=== PATIENT | female | born 1960 | race Caucasian/White ===

== ENCOUNTER → 2018-05-29 11:07 | Outpatient (CLI) | payer OTHER, SELFPAY ==
--- NOTE | 2018-05-29 | DI.MG.S_ITS ---
BILATERAL DIGITAL SCREENING MAMMOGRAM 3D/2D WITH CAD: 05/29/2018 CLINICAL: Routine screening. Family history of breast cancer. Comparison is made to exams dated: 08/29/2015 mammogram, 09/01/2014 mammogram, and 08/22/2014 mammogram - [facility]. There are scattered fibroglandular elements in both breasts. Current study was also evaluated with a Computer Aided Detection (CAD) system. No significant masses, calcifications, or other findings are seen in either breast. There has been no significant interval change. IMPRESSION: NEGATIVE There is no mammographic evidence of malignancy. A 1 year screening mammogram is recommended. This exam was interpreted at Station ID: [id number]. NOTE: For mammograms, a report in lay terms will be sent to the patient. Approximately 15% of breast malignancies will not be visualized mammographically. In the management of a palpable breast mass, a negative mammogram must not discourage biopsy of a clinically suspicious lesion. Electronically Signed By: Riya paredes/kathryn:05/29/2018 15:37:30 letter sent: Normal Exam ACR BI-RADS Category 1: Negative 3341F
== END ==
PROVIDERS: Family Provider Family Medicine; PCP Family Medicine; Visit Provider Family Medicine
DX: Z12.31 Encounter for screening mammogram for malignant neoplasm of breast (principal); Z80.3 Family history of malignant neoplasm of breast
CPT/HCPCS: 77063; 77067

== ENCOUNTER → 2018-12-07 09:42 | Outpatient (CLI) | payer OTHER, SELFPAY ==
[2018-12-07 10:54] LABS: Add Manual Diff / Slide Review NO; Basophils Absolute Auto 0 /uL (0-100); Basophils Percent Auto 0.7 % (0-2); Eosinophils Absolute Auto 200 /uL (0-450); Eosinophils Percent Auto 3.4 % (2-4); Hemoglobin 15.7 g/dL (12.0-16.0); Lymphocytes Absolute Auto 2000 /uL (1100-4500); Lymphocytes Percent Auto 43.1 % (25-40); Mean Corpuscular HGB Conc 34.1 % (30-36); Mean Corpuscular Hemoglobin 32.4 PG (26-34); Mean Corpuscular Volume 94.8 fL (80-100); Monocytes Absolute Auto 300 /uL (0-900); Monocytes Percent Auto 6.6 % (3-14); Neutrophils Absolute Auto 2100 /uL (1500-7000); Neutrophils Percent Auto 46.2 % (50-75); Platelet Count 194 X10^3/uL (150-400); Red Blood Cell Count 4.85 X10^6/uL (4.0-5.2); Red Cell Distribution Width 14.3 % (11.6-14.8); White Blood Cell Count 4.6 X10^3/uL (4.5-11.0)
[2018-12-07 11:12] LABS: Alanine Aminotransferase 48 IU/L (9-52); Albumin 4.7 g/dL (3.5-5.0); Albumin Globulin Ratio 1.4 (1.0-2.8); Alkaline Phosphatase 59 U/L (38-126); Aspartate Aminotransferase 38 IU/L (14-36); BUN Creatinine Ratio 15.6 (6-22); Blood Urea Nitrogen 14 mg/dL (7-17); Calcium 10.1 mg/dL (8.4-10.2); Carbon Dioxide 26 mmol/L (22-32); Chloride 104 mmol/L (98-107); Cholesterol 285 mg/dL (140-199); Estimated Glomerular Filt Rate > 60.0 mL/min (>60); Globulin 3.3 g/dL (1.7-4.1); Glucose 94 mg/dL (70-100); HDL Cholesterol 71 mg/dL (40-60); HEMOLYSIS 25 (0-50); LDL Cholesterol Calculated 186 mg/dL (<100); Potassium 5.2 mmol/L (3.4-5.1); Sodium 142 mmol/L (137-145); Triglycerides 141 mg/dL (35-150)
[2018-12-07 11:38] LABS: Thyroid Stimulating Hormone 3.16 uIU/mL (0.47-4.68)
== END ==
PROVIDERS: PCP Family Medicine; Visit Provider Family Medicine
DX: D69.6 Thrombocytopenia, unspecified (principal); E78.2 Mixed hyperlipidemia; N95.9 Unspecified menopausal and perimenopausal disorder; R94.5 Abnormal results of liver function studies
CPT/HCPCS: 36415; 80053; 80061; 83001; 84443; 85025

== ENCOUNTER → 2018-12-15 09:12 | Outpatient (CLI) | payer OTHER, SELFPAY ==
--- NOTE | 2018-12-15 09:14 | DI.MRI.S_ITS ---
PROCEDURE: MR HEAD/BRAIN WO CON INDICATIONS: Change in headache story TECHNIQUE: Noncontrast axial T1 spin echo, axial T2 fast spin echo, sagittal and axial FLAIR, coronal T2 fast spin echo, axial gradient echo, axial diffusion and ADC through the brain. COMPARISON: None. FINDINGS: Image quality: Diagnostic CSF Spaces: Basal cisterns are patent. No extra-axial fluid collections. Ventricles are normal in size and shape. Brain: No intracranial masses or hemorrhage. Miranda/white matter interface is normal. Brainstem appears normal. Diffusion-weighted images demonstrate no acute ischemic insult. No chronic ischemic insults. Normal intravascular flow voids are present. Skull and face: Calvarium has normal marrow signal. Orbits appear normal. Sinuses: Sinuses and mastoids are clear. IMPRESSION: Unremarkable intracranial study, without an imaging explanation found for the patient's presenting history of change in headache. Dictated by: Ariel Zuluaga M.D. on 12/15/2018 at 9:16 Approved by: Ariel Zuluaga M.D. on 12/15/2018 at 9:17
== END ==
PROVIDERS: PCP Family Medicine; Visit Provider Family Medicine
DX: G43.109 Migraine with aura, not intractable, without status migrainosus (principal)
CPT/HCPCS: 70551

== ENCOUNTER → 2019-07-12 09:24 | Outpatient (CLI) | payer OTHER, SELFPAY ==
[2019-07-12 11:09] LABS: Cholesterol 201 mg/dL (140-199); HDL Cholesterol 54 mg/dL (40-60); LDL Cholesterol Calculated 119 mg/dL (<100); Triglycerides 139 mg/dL (35-150)
== END ==
PROVIDERS: PCP Family Medicine; Visit Provider Family Medicine
DX: E78.2 Mixed hyperlipidemia (principal)
CPT/HCPCS: 36415; 80061

== ENCOUNTER → 2020-11-08 16:54 | Outpatient (CLI) | payer OTHER, SELFPAY ==
--- NOTE | 2020-11-08 | DI.MG.S_ITS ---
BILATERAL DIGITAL SCREENING MAMMOGRAM 3D/2D WITH CAD: 11/08/2020 CLINICAL: Routine screening. Family history of breast cancer. Comparison is made to exams dated: 05/29/2018 mammogram, 08/29/2015 mammogram, and 09/01/2014 mammogram - [facility]. There are scattered fibroglandular elements in both breasts. Current study was also evaluated with a Computer Aided Detection (CAD) system. There is a stable benign focal asymmetry in the right breast. No significant masses, calcifications, or other findings are seen in either breast. There has been no significant interval change. IMPRESSION: BENIGN There is no mammographic evidence of malignancy. A 1 year screening mammogram is recommended. This exam was interpreted at Station ID: [id number]. NOTE: For mammograms, a report in lay terms will be sent to the patient. Approximately 15% of breast malignancies will not be visualized mammographically. In the management of a palpable breast mass, a negative mammogram must not discourage biopsy of a clinically suspicious lesion. Electronically Signed By: Kelvin Cho acr/kathryn:11/09/2020 08:37:34 letter sent: Normal Exam ACR BI-RADS Category 2: Benign Finding(s) 3342F
== END ==
PROVIDERS: PCP Registered Nurse Diabetes Educator; Referring Provider Family Medicine; Visit Provider Family Medicine
DX: Z12.31 Encounter for screening mammogram for malignant neoplasm of breast (principal); Z80.3 Family history of malignant neoplasm of breast
CPT/HCPCS: 77063; 77067

== ENCOUNTER → 2020-11-27 09:17 | Outpatient (CLI) | payer OTHER, SELFPAY ==
[2020-11-27 10:20] LABS: Hematocrit 41.3 % (36-46); Hemoglobin 13.7 g/dL (12.0-16.0); Mean Corpuscular HGB Conc 33.2 % (30-36); Mean Corpuscular Volume 93.1 fL (80-100); Platelet Count 161 X10^3/uL (150-400); Red Blood Cell Count 4.43 X10^6/uL (4.0-5.2); Red Cell Distribution Width 13.2 % (11.6-14.8); White Blood Cell Count 3.7 X10^3/uL (4.5-11.0)
[2020-11-27 11:24] LABS: Alanine Aminotransferase 32 IU/L (<35); Albumin 4.1 g/dL (3.5-5.0); Albumin Globulin Ratio 1.6 (1.0-2.8); Alkaline Phosphatase 51 U/L (38-126); Aspartate Aminotransferase 31 IU/L (14-36); BUN Creatinine Ratio 22.1 (6-22); Bilirubin Total 1.1 mg/dL (0.2-1.3); Blood Urea Nitrogen 17 mg/dL (7-17); Calcium 9.2 mg/dL (8.4-10.2); Carbon Dioxide 29 mmol/L (22-32); Chloride 104 mmol/L (98-107); Cholesterol 188 mg/dL (140-199); Estimated Glomerular Filt Rate > 60.0 mL/min (>60); Globulin 2.5 g/dL (1.7-4.1); Glucose 101 mg/dL (70-100); HDL Cholesterol 55 mg/dL (40-60); HEMOLYSIS < 15 (0-50); LDL Cholesterol Calculated 109 mg/dL (<100); Potassium 4.3 mmol/L (3.4-5.1); Sodium 138 mmol/L (137-145); Total Protein 6.6 g/dL (6.3-8.2); Triglycerides 122 mg/dL (35-150)
[2020-11-27 11:55] LABS: TSH w/ Reflex to FT4 0.56 uIU/mL (0.47-4.68)
== END ==
PROVIDERS: PCP Registered Nurse Diabetes Educator; Referring Provider Registered Nurse Diabetes Educator; Visit Provider Registered Nurse Diabetes Educator
DX: Z00.00 Encounter for general adult medical examination without abnormal findings (principal); E78.2 Mixed hyperlipidemia; R94.5 Abnormal results of liver function studies
CPT/HCPCS: 36415; 80053; 80061; 84443; 85027

== ENCOUNTER → 2022-01-28 09:10 | Outpatient (CLI) | payer OTHER, SELFPAY ==
[2022-01-28 10:31] LABS: Add Manual Diff / Slide Review NO; Basophils Absolute Auto 0 /uL (0-100); Basophils Percent Auto 0.6 % (0-2); Eosinophils Absolute Auto 100 /uL (0-450); Eosinophils Percent Auto 2.9 % (2-4); Hematocrit 43.1 % (36-46); Hemoglobin 14.6 g/dL (12.0-16.0); Lymphocytes Absolute Auto 1200 /uL (1100-4500); Mean Corpuscular HGB Conc 33.8 % (30-36); Mean Corpuscular Volume 91.8 fL (80-100); Monocytes Absolute Auto 300 /uL (0-900); Monocytes Percent Auto 7.8 % (3-14); Neutrophils Absolute Auto 1900 /uL (1500-7000); Neutrophils Percent Auto 53.7 % (50-75); Platelet Count 153 X10^3/uL (150-400); Red Cell Distribution Width 13.7 % (11.6-14.8); White Blood Cell Count 3.5 X10^3/uL (4.5-11.0)
[2022-01-28 11:22] LABS: Alanine Aminotransferase 45 IU/L (<35); Albumin 4.6 g/dL (3.5-5.0); Albumin Globulin Ratio 1.5 (1.0-2.8); Alkaline Phosphatase 51 U/L (38-126); Aspartate Aminotransferase 38 IU/L (14-36); BUN Creatinine Ratio 15.5 (6-22); Bilirubin Total 1.4 mg/dL (0.2-1.3); Blood Urea Nitrogen 13 mg/dL (7-17); Calcium 9.2 mg/dL (8.4-10.2); Carbon Dioxide 28 mmol/L (22-32); Chloride 104 mmol/L (98-107); Cholesterol 201 mg/dL (140-199); Estimated Glomerular Filt Rate > 60.0 mL/min (>60); Globulin 3.1 g/dL (1.7-4.1); Glucose 98 mg/dL (80-110); HDL Cholesterol 51 mg/dL (40-60); HEMOLYSIS < 15 (0-50); LDL Cholesterol Calculated 124 mg/dL (<100); Potassium 4.3 mmol/L (3.4-5.1); Sodium 140 mmol/L (137-145); Total Protein 7.7 g/dL (6.3-8.2); Triglycerides 132 mg/dL (35-150)
[2022-01-28 11:50] LABS: TSH w/ Reflex to FT4 2.28 uIU/mL (0.47-4.68)
[2022-01-28 12:36] LABS: Folate 12.5 ng/mL (2.76-20.0); Vitamin B12 216 pg/mL (239-931)
== END ==
PROVIDERS: PCP Registered Nurse Diabetes Educator; Referring Provider Psychiatry & Neurology Neurology; Visit Provider Psychiatry & Neurology Neurology
DX: R41.3 Other amnesia (principal); E78.2 Mixed hyperlipidemia; R94.5 Abnormal results of liver function studies; R73.01 Impaired fasting glucose
CPT/HCPCS: 36415; 80053; 80061; 82607; 82746; 84443; 85025

== ENCOUNTER → 2022-04-17 10:50 | Outpatient (CLI) | payer OTHER, SELFPAY ==
--- NOTE | 2022-04-17 10:51 | DI.MG.S_ITS ---
BILATERAL DIGITAL SCREENING MAMMOGRAM 3D/2D WITH CAD: 04/17/2022 CLINICAL: Routine screening. Family history of breast cancer. Comparison is made to exams dated: 11/08/2020 mammogram, 05/29/2018 mammogram, and 08/29/2015 mammogram - [facility]. There are scattered fibroglandular elements in both breasts. Current study was also evaluated with a Computer Aided Detection (CAD) system. There is a stable benign focal asymmetry in the right breast. No significant masses, calcifications, or other findings are seen in either breast. There has been no significant interval change. IMPRESSION: BENIGN There is no mammographic evidence of malignancy. A 1 year screening mammogram is recommended. This exam was interpreted at Station ID: [id number]. NOTE: For mammograms, a report in lay terms will be sent to the patient. Approximately 15% of breast malignancies will not be visualized mammographically. In the management of a palpable breast mass, a negative mammogram must not discourage biopsy of a clinically suspicious lesion. Electronically Signed By: Kelvin Cho acr/kathryn:04/17/2022 12:06:41 letter sent: Normal Exam ACR BI-RADS Category 2: Benign Finding(s) 3342F
--- NOTE | 2022-04-17 10:51 | DI.US.S_ITS ---
PROCEDURE: US ABDOMEN LIMITED INDICATIONS: ELEVATED LIVER ENZYMES TECHNIQUE: Real-time focused scanning was performed of the abdomen, with image documentation. COMPARISON: None. FINDINGS: Normally distended gallbladder. No gallbladder wall thickening. No pericholecystic fluid. No shadowing gallstone or sludge. Diffusely increased hepatic parenchymal echogenicity. No focal hepatic mass. No intrahepatic or extrahepatic biliary ductal dilatation. Visualized portions of pancreas are normal. IMPRESSION: Hepatic steatosis. Otherwise normal study. Dictated by: Lewis Escalona M.D. on 04/17/2022 at 12:13 Approved by: Lewis Escalona M.D. on 04/17/2022 at 12:19
== END ==
PROVIDERS: PCP Registered Nurse Diabetes Educator; Referring Provider Registered Nurse Diabetes Educator; Visit Provider Registered Nurse Diabetes Educator
DX: Z12.31 Encounter for screening mammogram for malignant neoplasm of breast (principal); Z80.3 Family history of malignant neoplasm of breast; K76.0 Fatty (change of) liver, not elsewhere classified; R94.5 Abnormal results of liver function studies
CPT/HCPCS: 76705; 77063; 77067

== ENCOUNTER → 2022-07-15 08:44 | Outpatient (CLI) | payer OTHER, SELFPAY ==
[2022-07-15 09:45] LABS: Alanine Aminotransferase 58 IU/L (<35); Albumin 4.2 g/dL (3.5-5.0); Albumin Globulin Ratio 1.3 (1.0-2.8); Alkaline Phosphatase 58 U/L (38-126); Aspartate Aminotransferase 48 IU/L (14-36); Bilirubin Total 1.8 mg/dL (0.2-1.3); Bilirubin Unconjugated 1.7 mg/dL (0.0-1.1); Cholesterol 183 mg/dL (140-199); Globulin 3.2 g/dL (1.7-4.1); HDL Cholesterol 56 mg/dL (40-60); HEMOLYSIS < 15 (0-50); LDL Cholesterol Calculated 107 mg/dL (<100); Total Protein 7.4 g/dL (6.3-8.2); Triglycerides 101 mg/dL (35-150)
[2022-07-15 10:19] LABS: Ferritin 61 ng/mL (11-264)
[2022-07-15 11:10] LABS: HEMOLYSIS < 15 (0-50); Iron 105 ug/dL (37-170)
[2022-07-15 11:21] LABS: Percent Iron Saturation 32 % (15-50); Total Iron Binding Capacity 330 ug/dL (265-497); Transferrin 252 mg/dL (206-381)
== END ==
PROVIDERS: PCP Registered Nurse Diabetes Educator; Referring Provider Registered Nurse Diabetes Educator; Visit Provider Registered Nurse Diabetes Educator
DX: E78.2 Mixed hyperlipidemia (principal); R94.5 Abnormal results of liver function studies
CPT/HCPCS: 36415; 80061; 80076; 82728; 83540; 83550

== ENCOUNTER → 2022-07-23 12:34 | Outpatient (CLI) | payer OTHER, SELFPAY ==
[2022-07-24 08:48] LABS: Fecal Immunochemical Test Positive (Negative)
== END ==
PROVIDERS: PCP Registered Nurse Diabetes Educator; Referring Provider Registered Nurse Diabetes Educator; Visit Provider Registered Nurse Diabetes Educator
DX: Z12.11 Encounter for screening for malignant neoplasm of colon (principal)
CPT/HCPCS: 82274

== ENCOUNTER → 2022-07-30 09:07 | Outpatient (CLI) | payer OTHER, SELFPAY ==
[2022-07-30 10:48] LABS: COVID19 -Nasal RAPID Negative (Negative)
== END ==
PROVIDERS: PCP Registered Nurse Diabetes Educator; Visit Provider Surgery
DX: Z01.812 Encounter for preprocedural laboratory examination (principal); Z20.822 Contact with and (suspected) exposure to COVID-19
CPT/HCPCS: 87635; C9803

== ENCOUNTER 2022-07-31 09:21 | Day surgery (SDC) | payer OTHER, SELFPAY ==
[2022-07-31] VITALS (7 sets, daily range): BP systolic 129–156; BP diastolic 79–95; PULSE 65–75; RESP 12–18; TEMP 36.1–36.9; O2SAT 93–98; BMI 26.6
--- NOTE | 2022-07-31 | PATH_ITS ---
[facility] Accession Number: [id number] . 01 Material submitted: . rectum - RECTAL POLYP . 01 Diagnosis: Rectal Polyp, Biopsy: Tubulovillous adenoma. No high-grade dysplasia or malignancy. [facility] 08/02/2022 1157 Local . 01 Electronically signed: . Georgette Fuentes MD, Pathologist NPI- [id number] . 01 Gross description: . RECTAL POLYP: Received in formalin is 1 fragment of baeza soft tissue measuring 0.8 x 0.7 x 0.6 cm. Specimen is sectioned and submitted in its entirety in 1 cassette. /LILLIAM 08/01/2022 2235 Local . 01 Pathologist provided ICD-10: D12.8 . 01 CPT . 874844 Specimen Comment: A courtesy copy of this report has been sent to [phone] Performed at: 01 [facility] [address] [place] [address], [place], [place] [id number] MD Sarmad Stephens MD Phone: [phone]
--- NOTE | 2022-07-31 10:21 | P.HP_ITS ---
History of Present Illness History of Present Illness Date Patient Seen: 07/31/22 Time Patient Seen: 10:21 Chief complaint: DX COLONOSCOPY Narrative: colon cancer screen. Grandmother at age 80 had colon cancer. No symptoms. Patient History Medical History Impaired fasting blood sugar Family & Social History Social History: household members spouse Tobacco & Substance use: Smoking Status Former smoker alcohol intake frequency 0-2 drinks per day Substance Use Type does not use Meds Home Medications and Allergies Home Medications Medication Instructions Recorded Confirmed Type [LATANOPROST .005 % S] ##75 02/05/18 03/19/22 History verapamil 240 mg 24 hr 240 mg PO QDAY #90 caps 12/13/19 07/31/22 Rx capsule,extended release rizatriptan 10 mg tablet 10 mg PO ONCE PRN migraine 02/21/20 07/31/22 Rx headache #30 tabs atorvastatin 20 mg tablet 20 mg PO BEDTIME #90 tabs 03/19/22 07/31/22 Rx Allergies Allergy/AdvReac Type Severity Reaction Status Date / Time venom-honey bee Allergy Severe FEVER, Verified 07/31/22 10:01 [BEE VENOM (HONEY BEE)] LESIONS, SWELLING eucalyptus Allergy Mild Unknown Verified 07/31/22 10:01 [From Cepastat (eucalyptus)] menthol Allergy Mild Unknown Verified 07/31/22 10:01 [From Cepastat (eucalyptus)] phenol Allergy Mild Unknown Verified 07/31/22 10:01 [From Cepastat (eucalyptus)] Review of Systems Review of Systems ROS: Yes All systems reviewed with the patient and are negative except as otherwise documented Exam Vital Signs (past 8 hours): - 07/31/22 09:59 Temperature 97.4 F L Pulse Rate 75 Respiratory Rate 16 Blood Pressure 156/84 H Pulse Oximetry 97 Oxygen Delivery Method Room Air Oxygen Delivery Method Room Air Const General: cooperative, healthy appearing and comfortable [facility] Head: normal to inspection, normocephalic and atraumatic Face and sinus: normal facial exam Eyes General: appearance normal, both eyes and all related structures Sclera: sclerae normal Neck Neck: trachea midline Chest Chest: normal inspection of the chest Resp Effort & Inspection: normal respiratory effort Cardio Rate: regular rate Rhythm: regular rhythm GI Palpation: soft Skin General: no rashes or lesions noted and elasticity normal Neuro General: patient alert, patient awake and patient oriented x3 Extrem General: normal to inspection Psych Appearance: grossly normal Mental Status: mental status grossly normal Judgment: judgment good Assessment & Plan Assessment & Plan narrative: colon cancer screening with colonoscopy and moderate sedation COVID-19 COVID-19 status: Negative Time Spent With Patient Time with patient: less than 30 minutes Critical Care time: I spent a total of [] minutes of critical care time on this patient's care today; this time is exclusive of procedural time.
[2022-07-31] MEDS: MIDAZOLAM 5 MG/5 ML VIAL 8 MG IV (10:54)
[2022-07-31] MEDS: fentaNYL 100 MCG/2 ML INJ 175 MCG IV (10:54)
--- NOTE | 2022-07-31 11:13 | PM.OP.COLON ---
Operative Date/Time/Diagnoses Date of procedure: 07/31/22 Time of procedure: 11:14 Pre-op diagnosis: Colon cancer screening Post-op diagnosis: same Procedure & Clinicians Study performed: Colonoscopy with cold snare polypectomy Same procedure as scheduled: Yes Indications: Colon cancer screening Surgeon: Chikis Gtz Procedure Notes Procedure in detail: Preop diagnosis: Colon cancer screening Postop diagnosis: Same Operative procedure: Colonoscopy with cold snare polypectomy Surgeon: Caryn Gtz MD Anesthetic: Fentanyl 175 mcg, Versed 8 mg Findings: Polyp on a stalk approximately 1.3 cm in size. Cold snare biopsied. No diverticulosis, no other polyps identified. Procedure: Patient placed in lateral position. Rectal exam performed showing normal tone no masses. Colonoscope inserted into the rectum and advanced to ileocecal valve with minimal difficulty. Insufflation and extraction of the scope including retroflex the rectum had the above findings Impression: 1.3 cm size polyp with stock at approximately 23 cm from the anal verge. Taken with cold forceps snare. Specimen not retrieved the time of colonoscopy. We will attempt enema with capture of fluid postprocedure Plan: PACU, enema for receiving retained specimen Sedation minutes: 23 Findings: polyp(s) (Single polyp on a stalk at 1.3 cm in size. Found at 23 cm from anal verge) Specimen(s): other (Polyp) Complications: none Impression: Single polyp. Will await pathology for confirmation of colonoscopy in 5 years Post-procedure Recommendations: Colonoscopy in 5 years Follow up: as needed Disposition: PACU
--- NOTE | 2022-07-31 11:14 | SUR.OPER ---
polyp was removed unable to find to remove, Per Dr robles in PACU pt to have emema and hat to attempt to obtain biopsy
[2022-07-31] MEDS: FLEETS ENEMA 1 EACH PR (11:33)
--- NOTE | 2022-07-31 12:09 | SUR.OPER ---
this RN called to Preop and pt had Bowel movement in hat and polyp was collected.
--- NOTE | 2022-07-31 12:15 | SUR.PHASEII ---
Pt from Phase I, up to BR. Pt complained of cramping to abd 01/24. Fleets enema given. Polyps collected. Pt passed flatus. Resting in bed at this time. States cramping is improving. Dr Gtz updated and stated cramping to be expected today.
--- NOTE | 2022-07-31 12:38 | SUR.PHASEII ---
1215 Assumed care. Patient reported pain abdominal 3/. Patient requested to get dressed.
== END 2022-07-31 12:28 | disposition home or self-care (01) ==
PROVIDERS: PCP Registered Nurse Diabetes Educator; Referring Provider Surgery; Visit Provider Surgery
PROC: 0DJD8ZZ Inspection of Lower Intestinal Tract, Via Natural or Artificial Opening Endoscopic (ICD-10-PCS; CPT 45378; principal; 2022-07-31 10:45)
DX: Z12.11 Encounter for screening for malignant neoplasm of colon (principal); D12.8 Benign neoplasm of rectum
CPT/HCPCS: 45385; 99152; J2250; J3010

== ENCOUNTER → 2022-10-01 11:39 | Outpatient (CLI) | payer OTHER, SELFPAY ==
[2022-10-01 12:58] LABS: Alanine Aminotransferase 30 IU/L (<35); Albumin 4.2 g/dL (3.5-5.0); Albumin Globulin Ratio 1.6 (1.0-2.8); Alkaline Phosphatase 59 U/L (38-126); Aspartate Aminotransferase 29 IU/L (14-36); Bilirubin Total 1.8 mg/dL (0.2-1.3); Bilirubin Unconjugated 1.8 mg/dL (0.0-1.1); Globulin 2.7 g/dL (1.7-4.1); HEMOLYSIS < 15 (0-50); Total Protein 6.9 g/dL (6.3-8.2)
== END ==
PROVIDERS: PCP Registered Nurse Diabetes Educator; Referring Provider Registered Nurse Diabetes Educator; Visit Provider Registered Nurse Diabetes Educator
DX: R94.5 Abnormal results of liver function studies (principal)
CPT/HCPCS: 36415; 80076

== ENCOUNTER → 2023-06-23 09:21 | Outpatient (CLI) | payer OTHER, SELFPAY ==
[2023-06-23 11:26] LABS: Hematocrit 41.4 % (36-46); Mean Corpuscular HGB Conc 33.8 % (30-36); Mean Corpuscular Hemoglobin 31.2 PG (26-34); Mean Corpuscular Volume 92.3 fL (80-100); Platelet Count 143 X10^3/uL (150-400); Red Blood Cell Count 4.49 X10^6/uL (4.0-5.2); Red Cell Distribution Width 13.6 % (11.6-14.8)
[2023-06-23 11:51] LABS: Alanine Aminotransferase 37 IU/L (<35); Albumin 4.2 g/dL (3.5-5.0); Albumin Globulin Ratio 1.4 (1.0-2.8); Alkaline Phosphatase 60 U/L (38-126); Aspartate Aminotransferase 35 IU/L (14-36); BUN Creatinine Ratio 14.9 (6-22); Bilirubin Total 2.1 mg/dL (0.2-1.3); Blood Urea Nitrogen 13 mg/dL (7-17); Calcium 9.2 mg/dL (8.4-10.2); Carbon Dioxide 30 mmol/L (22-32); Chloride 103 mmol/L (98-107); Cholesterol 185 mg/dL (140-199); Estimated Glomerular Filt Rate > 60 mL/min (>60); Glucose 95 mg/dL (80-110); HDL Cholesterol 49 mg/dL (40-60); HEMOLYSIS < 15 (0-50); LDL Cholesterol Calculated 112 mg/dL (<100); Sodium 138 mmol/L (137-145); Total Protein 7.2 g/dL (6.3-8.2); Triglycerides 120 mg/dL (35-150)
[2023-06-23 12:18] LABS: TSH w/ Reflex to FT4 1.95 uIU/mL (0.47-4.68)
== END ==
PROVIDERS: PCP Registered Nurse Diabetes Educator; Referring Provider Registered Nurse Diabetes Educator; Visit Provider Registered Nurse Diabetes Educator
DX: E78.2 Mixed hyperlipidemia (principal); R73.01 Impaired fasting glucose; R94.5 Abnormal results of liver function studies; Z51.81 Encounter for therapeutic drug level monitoring
CPT/HCPCS: 36415; 80053; 80061; 84443; 85027

== ENCOUNTER → 2023-09-30 08:37 | Outpatient (CLI) | payer OTHER, SELFPAY ==
--- NOTE | 2023-09-30 | DI.MG.S_ITS ---
BILATERAL DIGITAL SCREENING MAMMOGRAM 3D/2D WITH CAD: 09/30/2023 CLINICAL: Routine screening. Family history of breast cancer. Comparison is made to exams dated: 04/17/2022 mammogram, 11/08/2020 mammogram, and 05/29/2018 mammogram - [facility]. There are scattered areas of fibroglandular density in both breasts (category b / 25%-50% glandular tissue). Current study was also evaluated with a Computer Aided Detection (CAD) system. No significant masses, calcifications, or other findings are seen in either breast. There has been no significant interval change. IMPRESSION: NEGATIVE There is no mammographic evidence of malignancy. A 1 year screening mammogram is recommended. Based on Tyrer-Cuzick model (a risk assessment model), the patient's lifetime risk is 28.3% and her 10 year risk is 13.2%. If a patient has an elevated risk, a more comprehensive evaluation should be considered and/or a referral to a genetic counselor. The [place] [employer], [employer], and NCCN Guidelines advise the consideration of Breast MRI as an adjunct to screening mammography in patients whose Lifetime risk to develop breast cancer is 20% or higher. This exam was interpreted at Station ID: [id number]. NOTE: For mammograms, a report in lay terms will be sent to the patient. Approximately 15% of breast malignancies will not be visualized mammographically. In the management of a palpable breast mass, a negative mammogram must not discourage biopsy of a clinically suspicious lesion. Electronically Signed By: Kelvin hawkins/kathryn:09/30/2023 10:21:27 letter sent: Normal Exam ACR BI-RADS Category 1: Negative 3341F
== END ==
PROVIDERS: PCP Registered Nurse Diabetes Educator; Referring Provider Registered Nurse Diabetes Educator; Visit Provider Registered Nurse Diabetes Educator
DX: Z12.31 Encounter for screening mammogram for malignant neoplasm of breast (principal); Z80.3 Family history of malignant neoplasm of breast
CPT/HCPCS: 77063; 77067

== ENCOUNTER → 2023-10-21 08:15 | Outpatient (CLI) | payer OTHER, SELFPAY ==
[2023-10-21 09:18] LABS: Hematocrit 41.9 % (36-46); Hemoglobin 14.1 g/dL (12.0-16.0); Mean Corpuscular HGB Conc 33.7 % (30-36); Mean Corpuscular Hemoglobin 30.7 PG (26-34); Mean Corpuscular Volume 91.1 fL (80-100); Platelet Count 154 X10^3/uL (150-400); Red Cell Distribution Width 14.2 % (11.6-14.8); White Blood Cell Count 4.2 X10^3/uL (4.5-11.0)
[2023-10-21 10:11] LABS: Alanine Aminotransferase 36 IU/L (<35); Albumin 4.3 g/dL (3.5-5.0); Albumin Globulin Ratio 1.5 (1.0-2.8); Alkaline Phosphatase 53 U/L (38-126); Aspartate Aminotransferase 34 IU/L (14-36); Bilirubin Total 1.8 mg/dL (0.2-1.3); Bilirubin Unconjugated 1.6 mg/dL (0.0-1.1); Cholesterol 190 mg/dL (140-199); Globulin 2.9 g/dL (1.7-4.1); HDL Cholesterol 57 mg/dL (40-60); HEMOLYSIS < 15 (0-50); LDL Cholesterol Calculated 113 mg/dL (<100); Total Protein 7.2 g/dL (6.3-8.2); Triglycerides 99 mg/dL (35-150)
== END ==
PROVIDERS: PCP Registered Nurse Diabetes Educator; Referring Provider Registered Nurse Diabetes Educator; Visit Provider Registered Nurse Diabetes Educator
DX: E78.2 Mixed hyperlipidemia (principal); R94.5 Abnormal results of liver function studies; D69.6 Thrombocytopenia, unspecified
CPT/HCPCS: 36415; 80061; 80076; 85027

== ENCOUNTER → 2024-01-30 09:24 | Outpatient (CLI) | payer OTHER, SELFPAY ==
[2024-01-30 10:03] LABS: Alanine Aminotransferase 46 IU/L (<35); Albumin 4.1 g/dL (3.5-5.0); Albumin Globulin Ratio 1.4 (1.0-2.8); Alkaline Phosphatase 58 U/L (38-126); Aspartate Aminotransferase 36 IU/L (14-36); Bilirubin Unconjugated 1.9 mg/dL (0.0-1.1); Cholesterol 161 mg/dL (140-199); HDL Cholesterol 53 mg/dL (40-60); HEMOLYSIS < 15 (0-50); LDL Cholesterol Calculated 78 mg/dL (<100); Total Protein 7.1 g/dL (6.3-8.2); Triglycerides 149 mg/dL (35-150)
== END ==
PROVIDERS: PCP Registered Nurse Diabetes Educator; Referring Provider Registered Nurse Diabetes Educator; Visit Provider Registered Nurse Diabetes Educator
DX: E78.2 Mixed hyperlipidemia (principal)
CPT/HCPCS: 36415; 80061; 80076

== ENCOUNTER → 2024-03-22 11:08 | Outpatient (CLI) | payer OTHER, SELFPAY ==
--- NOTE | 2024-03-22 11:10 | DI.MRI.S_ITS ---
BREAST MRI OF BOTH BREASTS: 03/22/2024 CLINICAL: High risk screening. TECHNIQUE: The patient was placed prone in a dedicated breast imaging coil. Precontrast axial STIR and 3D FLASH without fat saturation sequences were obtained. Both before and after bolus injection of contrast, sequential 1-minute axial 3D FLASH with fat saturation sequences for 3 time points, with subtraction images and maximum intensity projections (MIP's) generated. Delayed sagittal FLASH images with fat saturation were also obtained. 20 cc ProHance IV contrast was administered. Computer-aided detection, including computer algorithm analysis of MRI image data for lesion detection and characterization, pharmacokinetic analysis, with further physician review for interpretation, was performed. COMPARISON: [facility], , MM SCREENING MAMMO BI, 04/17/2022, 11:25. [facility], MG, MM SCREENING MAMMO BI, 09/30/2023, 9:16. [facility], , BREAST BILATERAL, 06/01/2009, 9:36. FINDINGS: Image quality: Excellent. There is mild background parenchymal enhancement. Right breast: No suspicious mass or non masslike enhancement. Left breast: No suspicious mass or non masslike enhancement. Miscellaneous: No axillary or internal mammary chain adenopathy. The visible portions of the chest wall, liver, heart, and lungs appear normal. IMPRESSION: NEGATIVE No MR evidence of suspicious breast enhancement to suggest malignancy. Continue annual screening with mammography and MRI if there is an elevated risk of breast cancer. BIRADS one, negative COMMENT: The imaging literature indicates that a negative contrast breast MRI examination has a high sensitivity and a moderate specificity for detecting and excluding invasive carcinomas to a detection threshold of 3-5 mm; nonetheless, appropriate clinical and mammographic follow-up are recommended. MRI is not sensitive for detecting DCIS (ductal carcinoma in situ) and may not detect large invasive neoplasms that show only minimal enhancement such as mucinous carcinoma. If there are suspicious calcifications or clinically worrisome palpable masses, then biopsy should still be considered. Invasive neoplasms can be hidden by co-existent and benign enhancement caused by mastitis, hormone therapy effects, radiation therapy, , and recent biopsy or surgery. False positive examinations can occur in a number of circumstances, including breasts that have recently been subject to invasive procedures and those that contain atypical ductal hyperplasia, hormonally stimulated glandular tissue, fat necrosis, or radial scars. This exam was interpreted at Station ID: [id number]. Electronically Signed By: Herminia lawrence/:03/22/2024 17:58:40 letter sent: Normal Exam ACR BI-RADS Category 1: Negative 3341F
== END ==
PROVIDERS: PCP Registered Nurse Diabetes Educator; Referring Provider Registered Nurse Diabetes Educator; Visit Provider Registered Nurse Diabetes Educator
DX: Z91.89 Other specified personal risk factors, not elsewhere classified; Z80.3 Family history of malignant neoplasm of breast; Z12.39 Encounter for other screening for malignant neoplasm of breast
CPT/HCPCS: 77049; A9579

== ENCOUNTER → 2024-04-07 14:50 | Outpatient (CLI) | payer OTHER, SELFPAY ==
--- NOTE | 2024-04-07 14:52 | DI.RAD.S_ITS ---
PROCEDURE: XR SHOULDER RT MIN 2V INDICATIONS: sharp pain @ shoulder to neck x 2 weeks TECHNIQUE: 3 views of the shoulder were acquired. COMPARISON: None. FINDINGS: Bones: No fractures or dislocations. No suspicious bony lesions. Visualized ribs appear intact. Moderate glenohumeral joint space narrowing her moderate AC joint joint space narrowing. No remodeling. Soft tissues: No suspicious soft tissue calcifications. IMPRESSION: Moderate glenohumeral and AC joint space narrowing Approved by: Sushant Haney M.D. on 04/07/2024 at 19:32
== END ==
PROVIDERS: PCP Registered Nurse Diabetes Educator; Referring Provider Physician Assistant; Visit Provider Physician Assistant
DX: M25.511 Pain in right shoulder (principal)
CPT/HCPCS: 73030

== ENCOUNTER 2024-09-15 07:16 | Emergency (ER) | payer OTHER, SELFPAY ==
[2024-09-15] VITALS (13 sets, daily range): BP systolic 130–180; BP diastolic 70–85; PULSE 58–71; RESP 10–28; TEMP 36.9; O2SAT 92–98; BMI 26.6
--- NOTE | 2024-09-15 07:22 | DI.RAD.S_ITS ---
PROCEDURE: XR CHEST 1V INDICATIONS: chest pain TECHNIQUE: One view of the chest was acquired. COMPARISON: None. FINDINGS: Surgical changes and devices: None. Lungs and pleura: Lungs are clear. No pleural effusions or pneumothorax. Mediastinum: Mediastinal contours appear normal. Heart size is normal. Bones and chest wall: No suspicious bony lesions. Overlying soft tissues appear unremarkable. IMPRESSION: No acute cardiopulmonary abnormality is seen. Dictated by: Lewis Mar M.D. on 09/15/2024 at 7:57 Approved by: Lewis Mar M.D. on 09/15/2024 at 7:57
--- NOTE | 2024-09-15 07:29 | EKG_ITS ---
[address] [address] Test Date: 2024-09-15 Pat Name: Mukesh Vazquez Department: [facility] Room: Gender: Female Purchasing Associate: KATERINE : 1960 Requested By: Order Number: [id number] Reading MD: Heri Celis Measurements Intervals [place] Rate: 63 P: 52 UT: 152 QRS: 32 QRSD: 70 T: 38 QT: 396 QTc: 405 Interpretive Statements Normal sinus rhythm Electronically Signed On 09-15-2024 11:26:53 PDT by Heri Celis
[2024-09-15 07:47] LABS: Add Manual Diff / Slide Review NO; Basophils Absolute Auto 0 /uL (0-100); Eosinophils Absolute Auto 200 /uL (0-450); Hematocrit 40.9 % (36-46); Hemoglobin 13.8 g/dL (12.0-16.0); Lymphocytes Absolute Auto 1800 /uL (1100-4500); Lymphocytes Percent Auto 41.8 % (25-40); Mean Corpuscular HGB Conc 33.7 % (30-36); Mean Corpuscular Hemoglobin 30.8 PG (26-34); Mean Corpuscular Volume 91.5 fL (80-100); Monocytes Absolute Auto 400 /uL (0-900); Monocytes Percent Auto 8.3 % (3-14); Neutrophils Absolute Auto 1900 /uL (1500-7000); Neutrophils Percent Auto 44.9 % (50-75); Platelet Count 141 X10^3/uL (150-400); Red Blood Cell Count 4.47 X10^6/uL (4.0-5.2); Red Cell Distribution Width 13.6 % (11.6-14.8); White Blood Cell Count 4.3 X10^3/uL (4.5-11.0)
[2024-09-15 07:54] LABS: INR 0.9 (0.9-1.3); Prothrombin Time 10.5 SECONDS (9.4-12.5)
[2024-09-15 07:56] LABS: PTT Partial Thromboplastin Tim 34 SECONDS (25.1-36.5)
[2024-09-15 08:00] LABS: Alanine Aminotransferase 41 IU/L (<35); Albumin Globulin Ratio 1.5 (1.0-2.8); Alkaline Phosphatase 53 U/L (38-126); Aspartate Aminotransferase 36 IU/L (14-36); BUN Creatinine Ratio 12.5 (6-22); Bilirubin Total 1.5 mg/dL (0.2-1.3); Blood Urea Nitrogen 10 mg/dL (7-17); Calcium 9.1 mg/dL (8.4-10.2); Carbon Dioxide 24 mmol/L (22-32); Chloride 109 mmol/L (98-107); Creatine Kinase 93 U/L (30-135); Estimated Glomerular Filt Rate > 60 mL/min (>60); Globulin 2.7 g/dL (1.7-4.1); Glucose 100 mg/dL (80-110); HEMOLYSIS < 15 (0-50); Lipase 77 U/L (23-300); Potassium 3.7 mmol/L (3.4-5.1); Sodium 140 mmol/L (137-145); Total Protein 6.7 g/dL (6.3-8.2)
[2024-09-15 08:03] LABS: D Dimer 257 ng/ml (<500)
[2024-09-15] MEDS: ASPIRIN 81 MG CHEW TAB 324 MG PO (08:08)
[2024-09-15 08:12] LABS: NT-proBNP (BNP-Adult 18+) 198 pg/mL (<125); Troponin I < 0.012 ng/mL (0.01-0.034)
--- NOTE | 2024-09-15 09:37 | ED_ITS ---
HPI - Chest Pain General Chief Complaint: Chest Pain Stated Complaint: chest pain, weak, sob Time Seen by Provider: 09/15/24 09:29 Source: patient, RN notes reviewed and old records reviewed History of Present Illness HPI narrative: 64-year-old female with a history of hypertension dyslipidemia and glaucoma who presents with complaint of sensation of epigastric discomfort radiates a little bit up towards her chest felt dizzy nauseated has had some palpitations particularly with exertion starting Friday. Sort of intermittent symptoms which have become more constant over the past 12-24 hours. Patient describes it as being epigastric does come up somewhat into her chest denies any radiation downwards. Denies any fevers or chills. No cold cough or congestion. She was not really had any shortness of breath but has had a sensation of palpitations particularly with exertion or movement. No syncope. She would some nausea but no vomiting. She has not had any diaphoresis. No new swelling in her extremities. States she is on eyedrops for glaucoma, verapamil for hypertension and rosuvastatin as her home medications. Remote history of hysterectomy, tonsillectomy and tubes in her ears. Has allergies to prefers conservative in eyedrops. No tobacco, 1-3 alcoholic drinks daily, no recreational drugs. Patient notes symptoms started while she was in [place] she had flown there and then returned Friday. Patient labs are noted to have elevated bilirubin which she states has been persistent for some time. Notes family history father had heart attacks. Related Data Home Medications Medication Instructions Recorded Confirmed latanoprost 0.005 % eye drops 1 drp ophthalmic (eye) 01/14/23 04/07/24 mometasone 0.1 % topical solution ml topical 08/05/23 04/07/24 rizatriptan 10 mg disintegrating 10 mg PO DAILY 08/05/23 04/07/24 tablet fexofenadine 180 mg tablet 180 mg PO DAILY 02/03/24 04/07/24 (Nesha Allergy) Previous Rx's Medication Instructions Recorded verapamil 240 mg 24 hr 240 mg PO QDAY #90 caps 12/13/19 capsule,extended release rosuvastatin 20 mg tablet 20 mg PO DAILY #90 tabs 11/04/23 naproxen 500 mg tablet 500 mg PO BID PRN pain #40 tabs 04/27/24 Allergies Allergy/AdvReac Type Severity Reaction Status Date / Time venom-honey bee Allergy Severe FEVER, Verified 04/07/24 14:32 [BEE VENOM (HONEY BEE)] LESIONS, SWELLING cedarwood Allergy Intermediate Congested Verified 04/07/24 14:32 eucalyptus Allergy Mild Unknown Verified 04/07/24 14:32 [From Cepastat (eucalyptus)] menthol Allergy Mild Unknown Verified 04/07/24 14:32 [From Cepastat (eucalyptus)] phenol Allergy Mild Unknown Verified 04/07/24 14:32 [From Cepastat (eucalyptus)] Review of Systems Review of Systems ROS Unobtainable: All systems reviewed & are unremarkable except as noted in HPI and below Patient History Medical History Fatty liver disease, nonalcoholic Dyslipidemia Tubulovillous adenoma Impaired fasting blood sugar Social History household members: spouse Smoking Status: Never smoker Smoking Status: Never smoker alcohol intake frequency: 0-2 drinks per day Substance Use Type: does not use Exam Narrative Exam Narrative: GENERAL: Alert and oriented x three, well-appearing female in mild distress HEENT: Head normocephalic, atraumatic, EOMI, pupils reactive, face symmetric, moist mucous membranes NECK: Supple, full range of motion CARDIOVASCULAR: Regular rate and rhythm without murmurs, rubs or gallops. No JVD. No edema bilateral lower extremities. RESPIRATORY: Breath sounds equal bilaterally, no wheezes rales or rhonchi. ABDOMEN: Soft, nontender. Normoactive bowel sounds all 4 quadrants. No guarding or rebound, rigidity, no mass : No CVA tenderness EXTREMITIES: Normal range of motion, no clubbing or edema. Neurovascularly intact NEUROLOGICAL: Cranial nerves II through XII grossly intact. Moving all extremities SKIN: Warm, dry, no petechiae, no rashes or lesions. Initial Vital Signs Initial Vital Signs: Vital Signs Temperature 98.4 F 09/15/24 07:26 Pulse Rate 68 09/15/24 07:26 Respiratory Rate 16 09/15/24 07:26 Blood Pressure 180/85 H 09/15/24 07:26 Pulse Oximetry 94 09/15/24 07:26 Oxygen Delivery Method Room Air 09/15/24 07:26 Course Orders Ordered: ED Orders 09/15/24 09:57 Trop I [Troponin I] Stat 09/15/24 09:59 CT angio chest PE protocol Stat Discontinued Medications Aspirin (Aspirin 81 Mg Chew Tab) 324 mg PO NOW ONE Stop: 09/15/24 07:23 Last Admin: 09/15/24 08:08 Dose: 324 mg Documented By: FINA Pantoprazole Sodium (Pantoprazole 40 Mg Vial) 40 mg IV NOW ONE Stop: 09/15/24 10:00 Last Admin: 09/15/24 10:18 Dose: 40 mg Documented By: [facility] Vital Signs Vital signs: Vital Signs - 8 hr 09/15/24 09:30 09/15/24 09:30 09/15/24 10:00 Pulse Rate 67 69 Respiratory Rate 28 H 27 H Blood Pressure 136/77 Pulse Oximetry 96 94 09/15/24 10:00 09/15/24 11:00 09/15/24 11:29 Pulse Rate 62 Respiratory Rate 13 Blood Pressure 131/83 148/81 H Pulse Oximetry 98 09/15/24 11:29 09/15/24 11:30 09/15/24 11:31 Pulse Rate 65 58 L Respiratory Rate 20 12 Blood Pressure 150/74 H Pulse Oximetry 97 97 09/15/24 11:31 09/15/24 12:00 Pulse Rate 59 L 62 Respiratory Rate 12 12 Blood Pressure Pulse Oximetry 96 96 MDM - Chest Pain Lab Data 09/15/24 07:40 09/15/24 07:40 Labs: Lab Results 09/15/24 09/15/24 Range/Units 07:40 09:57 WBC 4.3 L (4.5-11.0) X10^3/uL RBC 4.47 (4.0-5.2) X10^6/uL Hgb 13.8 (12.0-16.0) g/dL Hct 40.9 (36-46) % MCV 91.5 (80-100) fL MCH 30.8 (26-34) PG MCHC 33.7 (30-36) % RDW 13.6 (11.6-14.8) % Plt Count 141 L (150-400) X10^3/uL Neut % (Auto) 44.9 L (50-75) % Lymph % (Auto) 41.8 H (25-40) % [place] % (Auto) 8.3 (3-14) % Eos % (Auto) 4.0 (2-4) % Baso % (Auto) 1.0 (0-2) % Neut # (Auto) 1900 (2384-5078) /uL Lymph # (Auto) 1800 (6472-2052) /uL [place] # (Auto) 400 (0-900) /uL Eos # (Auto) 200 (0-450) /uL Baso # (Auto) 0 (0-100) /uL PT 10.5 (9.4-12.5) SECONDS INR 0.9 (0.9-1.3) APTT 34 (25.1-36.5) SECONDS D-Dimer 257 (<500) ng/ml Sodium 140 (137-145) mmol/L Potassium 3.7 (3.4-5.1) mmol/L Chloride 109 H (98-107) mmol/L Carbon Dioxide 24 (22-32) mmol/L BUN 10 (7-17) mg/dL Creatinine 0.80 (0.52-1.04) mg/dL Estimated GFR > 60 (>60) mL/min BUN/Creatinine Ratio 12.5 (6-22) Glucose 100 (80-110) mg/dL Calcium 9.1 (8.4-10.2) mg/dL Magnesium 2.0 (1.6-2.3) mg/dL Total Bilirubin 1.5 H (0.2-1.3) mg/dL AST 36 (14-36) IU/L ALT 41 H (<35) IU/L Alkaline Phosphatase 53 (38-126) U/L Total Creatine Kinase 93 (30-135) U/L Troponin I < 0.012 < 0.012 (0.01-0.034) ng/mL NT-Pro-B Natriuret Pep 198 H (<125) pg/mL Total Protein 6.7 (6.3-8.2) g/dL Albumin 4.0 (3.5-5.0) g/dL Globulin 2.7 (1.7-4.1) g/dL Albumin/Globulin Ratio 1.5 (1.0-2.8) Lipase 77 (23-300) U/L Imaging Data Chest x-ray: Radiologist's Impression: [address] [place] [address] XRay Report Signed Patient: Mukesh Vazquez MR#: [id number] : 1960 Acct:[id number] Age/Sex: 64 / F Date of Service: 09/15/24 Loc: ED Accession Number: [id number] Procedure: XR chest 1V Ordering Provider: Chari Gaitan D.O. PROCEDURE: XR CHEST 1V INDICATIONS: chest pain TECHNIQUE: One view of the chest was acquired. COMPARISON: None. FINDINGS: Surgical changes and devices: None. Lungs and pleura: Lungs are clear. No pleural effusions or pneumothorax. Mediastinum: Mediastinal contours appear normal. Heart size is normal. Bones and chest wall: No suspicious bony lesions. Overlying soft tissues appear unremarkable. IMPRESSION: No acute cardiopulmonary abnormality is seen. Dictated by: Lewis Mar M.D. on 09/15/2024 at 7:57 ECG Data Attestation: I personally reviewed and interpreted this ECG as follows: Prior ECG tracings: not available for review Interpretation: Sinus rhythm rate of 63 MN 152 QRS is 70 QTC of 4 5, no acute ST elevation or depression noted No prior for comparison. MDM Narrative Medical decision making narrative: 64-year-old female with complaint of chest pressure x5 days intermittent but now constant midsternal without radiation and complaint of shortness of breath. Patient hypertensive upon arrival but improved here in the department without intervention. Patient's does note symptoms started after she had flown to [place]. She has had sensation of palpitations here in the department but no significant ectopy or arrhythmias. Labs patient has leukopenia with a white count of 4.3 consistent with priors for the last several years platelets are 141 also intermittently thrombocytopenic for several years, hemoglobin is 13.8 with predominance of lymphocytes. Coags are negative, D-dimer is 257. Sodium is 140 potassium 3.7 chloride 109 CO2 is 20 BUN 10 creatinine 0.8, bilirubin is 1.5 AST 36 with a ALT of 41 alk-phos of 53 lipase is negative at 77, patient has had persistently elevated bilirubin for the past year. Troponins less than 0.012 with a BNP of 198. Repeat troponin is less than 0.012 Chest x-ray shows no acute change EKG shows no acute change. No prior for comparison. CT angio chest shows no acute pulmonary emboli or dense airspace disease/pleural effusion. Multiple pulmonary nodules present notably measuring 5-6 mm subpleural patient should have follow up CT in 1 year if considered high-risk. Normal heart size, no pathologic lymph nodes indeterminate prominent paratracheal lymph node measuring 9 mm positive reactive. Degenerative changes bones. Upper abdomen is unremarkable. Patient had aspirin 325mg. Did receive Protonix. Patient is nontender on exam and right upper quadrant, discussed findings from today she should follow up for pulmonary nodules that were found but no acute cardiac, pulmonary embolic or vascular history was found. Bilirubin has been chronically elevated but she was nontender on exam food seems less like to be a source. We discussed possibly reflux although she is tried Prilosec and Tums at home without much improvement. Discharge Plan Departure Patient Disposition: Home Clinical Impression: Palpitations, Pulmonary nodules, Atypical chest pain Activity Restrictions/Additional Instructions: Follow up with your physician. If you are having persistent symptoms worthwhile to follow up for upper endoscopy for further evaluation. Your imaging did incidentally find several pulmonary nodules, share this information with your physician and dependent on your past medical history they may recommend follow up in [address] with repeat chest CT. Please return for new chest pain, shortness of breath, lightheadedness or passing out, fevers, persistent vomiting, black or bloody stools, persistently fast or elevated heart rate or other new or concerning changes. Prescriptions: No Action verapamil 240 mg capsule,ext rel. pellets 24 hr 240 mg PO QDAY Qty: 90 0RF naproxen 500 mg tablet 500 mg PO BID PRN (Reason: pain) Qty: 40 0RF rizatriptan 10 mg tablet,disintegrating 10 mg PO DAILY mometasone 0.1 % solution topical latanoprost 0.005 % drops 1 drp ophthalmic (eye) rosuvastatin 20 mg tablet 20 mg PO DAILY Qty: 90 3RF fexofenadine [Nesha Allergy] 180 mg tablet 180 mg PO DAILY Referrals: Uday Muñoz ARNP [Primary Care Provider] - Stand Alone Forms: Patient Portal/API/Survey
--- NOTE | 2024-09-15 09:59 | DI.CT.S_ITS ---
PROCEDURE: CT ANGIO CHEST PE PROTOCOL INDICATIONS: epigastric pain, sob, palpations w/ exertion, recent flights TECHNIQUE: After the administration of intravenous contrast, 2 mm thick sections acquired from the pulmonary apices to the posterior costophrenic angles. 3-dimensional maximum intensity projection (MIP) coronal and sagittal reformats were then acquired through the thorax. For radiation dose reduction, the following was used: automated exposure control, adjustment of mA and/or kV according to patient size. COMPARISON: [facility], CR, XR CHEST 1V, 09/15/2024, 7:32. FINDINGS: Image quality: Diagnostic Lungs and pleura: No dense airspace disease. Mild basal atelectasis is present. No pleural effusions. Multiple pulmonary nodules are present, most notably measuring 5-6 mm in the subpleural region of the right lung (5/175). If the patient is considered high risk, consider optional follow-up in [address] Mediastinum, heart, and esophagus: No acute pulmonary embolism. No hiatal hernia. Normal heart size. No pathologic lymph nodes by size criteria. Indeterminate prominent pretracheal lymph node measures 9 mm in short axis 4/39, possibly reactive. Chest wall and thyroid: Unremarkable Upper abdomen: Unremarkable on this limited arterial phase study Bones: There are degenerative changes. IMPRESSION: No acute pulmonary embolism or dense airspace disease/pleural effusion. Other findings above. Dictated by: Sina Adkins M.D. on 09/15/2024 at 10:50 Approved by: Sina Adkins M.D. on 09/15/2024 at 10:54
[2024-09-15] MEDS: PANTOPRAZOLE 40 MG VIAL IV (10:18)
[2024-09-15 10:28] LABS: Troponin I < 0.012 ng/mL (0.01-0.034)
== END 2024-09-15 12:14 | disposition home or self-care (01) ==
PROVIDERS: Emergency Provider Emergency Medicine; PCP Registered Nurse Diabetes Educator
DX: R00.2 Palpitations (principal); R07.89 Other chest pain; R91.8 Other nonspecific abnormal finding of lung field
CPT/HCPCS: 36415; 71045; 71275; 80053; 82550; 83690; 83735; 83880; 84484; 85025; 85379; 85610; 85730; 93005; 96374; 99284; 99285; J2470; Q9967

== ENCOUNTER → 2024-11-25 08:45 | Outpatient (CLI) | payer OTHER, SELFPAY ==
--- NOTE | 2024-11-25 08:47 | DI.MG.S_ITS ---
BILATERAL DIGITAL SCREENING MAMMOGRAM 3D/2D WITH CAD: 11/25/2024 CLINICAL: Routine screening. Family history of breast cancer. Comparison is made to exams dated: 09/30/2023 mammogram, 04/17/2022 mammogram, and 11/08/2020 mammogram - [facility]. There are scattered areas of fibroglandular density (category b / 25%-50% glandular tissue). Current study was also evaluated with a Computer Aided Detection (CAD) system. No significant masses, calcifications, or other findings are seen in either breast. There has been no significant interval change. IMPRESSION: NEGATIVE There is no mammographic evidence of malignancy. A 1 year screening mammogram is recommended. Based on Tyrer-Cuzick model (a risk assessment model), the patient's lifetime risk is 27.7% and her 10 year risk is 13.4%. If a patient has an elevated risk, a more comprehensive evaluation should be considered and/or a referral to a genetic counselor. The [place] [employer], [place] [employer], and NCCN Guidelines advise the consideration of Breast MRI as an adjunct to screening mammography in patients whose Lifetime risk to develop breast cancer is 20% or higher. This exam was interpreted at Station ID: [id number]. NOTE: For mammograms, a report in lay terms will be sent to the patient. Approximately 15% of breast malignancies will not be visualized mammographically. In the management of a palpable breast mass, a negative mammogram must not discourage biopsy of a clinically suspicious lesion. Electronically Signed By: Justin ozuna/kathryn:11/25/2024 18:12:48 letter sent: Normal Exam ACR BI-RADS Category 1: Negative
== END ==
PROVIDERS: PCP Registered Nurse Diabetes Educator; Referring Provider Registered Nurse Diabetes Educator; Visit Provider Registered Nurse Diabetes Educator
DX: Z12.31 Encounter for screening mammogram for malignant neoplasm of breast (principal); Z80.3 Family history of malignant neoplasm of breast
CPT/HCPCS: 77063; 77067

== ENCOUNTER 2025-08-04 08:47 | Day surgery (SDC) | payer OTHER, SELFPAY ==
[2025-08-04 09:10] VITALS: BP 143/77; PULSE 80; RESP 16; TEMP 36.4; O2SAT 95
[2025-08-04] MEDS: LACTATED RINGERS 1,000 ML 42 ML IV (09:14)
--- NOTE | 2025-08-04 09:35 | PM.HP.IH.1 ---
History of Present Illness History of Present Illness Date Patient Seen: 08/04/25 Time Patient Seen: 09:35 Chief complaint: Screening Colonoscopy Narrative: Mukesh is 65-year-old woman who had her first colonoscopy in [address] Gtz. There was a 0.5 cm polyp that removed from her sigmoid colon and came back as a tubulovillous adenoma. No family history of colon cancer. [facility] Medical History Fatty liver disease, nonalcoholic Dyslipidemia Tubulovillous adenoma Impaired fasting blood sugar Social History household members: spouse Smoking Status: Never smoker Meds Home Medications and Allergies Home Medications ?Medication ?Instructions ?Recorded ?Confirmed ?Type rizatriptan 10 mg disintegrating 10 mg PO DAILY 08/05/23 08/04/25 History tablet brimonidine 0.1 % eye drops 1 drp EYE-BOTH BID 10/19/24 08/04/25 History rosuvastatin 20 mg tablet 20 mg PO DAILY #90 tabs 10/19/24 08/04/25 Rx tafluprost (PF) 0.0015 % eye drops drp EYE-BOTH 10/19/24 08/03/25 History in a dropperette verapamil 240 mg 24 hr 240 mg PO QDAY #90 caps 10/19/24 08/04/25 Rx capsule,extended release hydroxyzine HCl 25 mg tablet 25 mg PO TID PRN itching #90 tabs 02/17/25 08/04/25 Rx Allergies Allergy/AdvReac Type Severity Reaction Status Date / Time venom-honey bee (BEE VENOM Allergy Severe FEVER, Verified 08/03/25 08:34 (HONEY BEE)) LESIONS, SWELLING cedarwood Allergy Intermediate Congested Verified 08/03/25 08:34 eucalyptus (From Cepastat Allergy Mild Unknown Verified 08/03/25 08:34 (eucalyptus)) menthol (From Cepastat Allergy Mild Unknown Verified 08/03/25 08:34 (eucalyptus)) phenol (From Cepastat Allergy Mild Unknown Verified 08/03/25 08:34 (eucalyptus)) Exam Vital Signs (past 8 hours): - 08/04/25 09:10 Temperature 97.6 F Pulse Rate 80 Respiratory Rate 16 Blood Pressure 143/77 H Pulse Oximetry 95 Oxygen Delivery Method Room Air Oxygen Delivery Method Room Air Const General: healthy appearing Assessment & Plan Assessment and plan (1) History of adenomatous polyp of colon: Status: Acute Plan Colonoscopy for history of a tubulovillous adenoma in 2021 Time-Based Coding :: [TOTAL MINUTES] spent with patient and on the chart (including review of chart, obtaining history, exam, reviewing outside data, placing orders, documenting exam and treatment plan, and counseling patient) on [DATE]. [employer] Transportation Dispatcher Document charge(s): No
--- NOTE | 2025-08-04 10:06 | P.OP.COLON_ITS ---
Operative Date/Time/Diagnoses Date of procedure: 08/04/25 Time of procedure: 10:06 Pre-op diagnosis: History of a sigmoid colon polyp Post-op diagnosis: same Procedure & Clinicians Study performed: Colonoscopy Same procedure(s) as scheduled: Yes Surgeon: Alvarez Velasquez Anesthesia Type: MAC +/- Procedure Notes Procedure in detail: Surgeon: Alvarez Velasquez MD Anesthesia: Sofiya Guillen CRNA Procedure: The patient was brought to the endoscopy suite, placed in left lat eral decubitus position. The patient was connected to monitoring devices. A time-out was performed. Sedation was administered. Once the patient was adequately sedated, a digital rectal exam was performed and was normal. The scope was then inserted and advanced to the cecum where the appendiceal orifice was identified and photographed. The scope was then slowly withdrawn over greater than 6 minutes. The mucosa was thoroughly inspected. No polyps or other abnormalities were identified. The area of the sigmoid colon around 20-25 cm was well visualized and there was no trace of any residual polyp. The scope was retroflexed in the rectum. No other abnormalities were found. The scope was straightened and removed. The patient was awakened and brought to recovery. Scope withdrawal time: 7 minutes Sedation time: 11 minutes EBL: 0 Findings: Normal colon Post-procedure Recommendations: Colonoscopy in 5 years Disposition: PACU
[2025-08-04 10:10] VITALS: BP 133/74; PULSE 75; RESP 16; TEMP 36.3; O2SAT 98
[2025-08-04 10:15] VITALS: BP 135/78; PULSE 73; RESP 16; TEMP 36.2; O2SAT 98
[2025-08-04 10:25] VITALS: BP 133/74; PULSE 74; RESP 16; TEMP 36.2; O2SAT 98
== END 2025-08-04 10:48 | disposition home or self-care (01) ==
PROVIDERS: PCP Registered Nurse Diabetes Educator; Referring Provider Surgery; Visit Provider Surgery
PROC: 0DJD8ZZ Inspection of Lower Intestinal Tract, Via Natural or Artificial Opening Endoscopic (ICD-10-PCS; CPT 45378; principal; 2025-08-04 10:15)
DX: Z12.11 Encounter for screening for malignant neoplasm of colon (principal); Z86.0101 Personal history of adenomatous and serrated colon polyps
CPT/HCPCS: 45378; J2704

== ENCOUNTER → 2025-08-09 08:01 | Outpatient (CLI) | payer OTHER, SELFPAY ==
--- NOTE | 2025-08-09 08:03 | DI.MRI.S_ITS ---
PROCEDURE: MR ANGIO HEAD WO/W CON INDICATIONS: eval pulsatile visual symptoms, worsening migraines TECHNIQUE: Noncontrast axial 3-D [id number] MR angiogram, with 3-dimensional maximum intensity projection (MIP) reformats of the internal carotid arteries and posterior circulation then performed. COMPARISON: None. FINDINGS: Image quality: Excellent. Anterior circulation: Intracranial internal carotid arteries demonstrate normal size and intraluminal flow signal. The flow within the paired anterior cerebral arteries is normal and symmetric. The flow within the middle cerebral arteries is normal and symmetric. The anterior communicating artery is seen. No stenoses, occlusions, or aneurysms. Posterior circulation: Left vertebral artery is dominant and forms the majority of the basilar artery. Right vertebral artery is congenitally diminutive. The flow within the posterior cerebral arteries is normal and symmetric. No stenoses, occlusions, or aneurysms. IMPRESSION: No significant arterial abnormalities. Dictated by: Elan Nieto M.D. on 08/09/2025 at 9:31 Approved by: Elan Nieto M.D. on 08/09/2025 at 9:35
--- NOTE | 2025-08-09 08:03 | DI.MRI.S_ITS ---
PROCEDURE: MR ANGIO NECK W CON INDICATIONS: eval pulsatile visual symptoms, worsening migraines. TECHNIQUE: Axial and sagittal TruFISP through the neck. Coronal dynamic MRA after the administration of contrast in the arterial and venous phases, with rotating 3- dimensional maximum intensity projection (MIP) reformats constructed from subtraction images. COMPARISON: None. FINDINGS: Image quality: Excellent. Carotid system: Great vessels demonstrate a conventional anatomy as they arise from the aortic arch. The origins of the common carotid arteries appear normal. The calibers and courses of the common carotid arteries are likewise normal. The carotid bifurcations appear normal bilaterally. The internal carotid arteries are widely patent up to the [place]. Posterior circulation: The origins of the vertebral arteries are unremarkable. The more superior portions of the vertebral arteries demonstrate normal course and caliber. Vertebral arteries join to form a normal appearing basilar artery. Miscellaneous: Subclavian arteries are patent throughout. Limited precontrast images through the neck demonstrate no significant soft tissue abnormalities. IMPRESSION: No significant arterial abnormalities of the neck. Any quantitative measurements of stenosis were performed using NASCET criteria. Dictated by: Elan Nieto M.D. on 08/09/2025 at 9:35 Approved by: Elan Nieto M.D. on 08/09/2025 at 9:46
== END ==
PROVIDERS: PCP Registered Nurse Diabetes Educator; Referring Provider Registered Nurse Diabetes Educator; Visit Provider Registered Nurse Diabetes Educator
DX: H05.26 Pulsating exophthalmos (principal); H53.9 Unspecified visual disturbance; R51.9 Headache, unspecified
CPT/HCPCS: 70546; 70549; A9579

== ENCOUNTER → 2025-08-19 08:44 | Outpatient (CLI) | payer OTHER, SELFPAY ==
--- NOTE | 2025-08-19 08:45 | DI.MRI.S_ITS ---
PROCEDURE: MR HEAD/BRAIN WO CON INDICATIONS: eval pulsatile visual symptoms, worsening migraines TECHNIQUE: Noncontrast axial T1 spin echo, axial T2 fast spin echo, sagittal and axial FLAIR, coronal T2 fast spin echo, axial gradient echo, axial diffusion and ADC through the brain. COMPARISON: [facility], MR, MR HEAD/BRAIN WO CON, 12/15/2018, 9:25. FINDINGS: CSF Spaces: Basal cisterns are patent. No extra-axial fluid collections. Ventricles are normal in size and shape. Brain: No intracranial masses or hemorrhage. Miranda/white matter interface is normal. Brainstem appears normal. Diffusion-weighted images demonstrate no acute infarct. No chronic ischemic insults. Normal intravascular flow voids are present. Skull and face: Calvarium has normal marrow signal. Orbits appear normal. Sinuses: Sinuses and mastoids are clear. IMPRESSION: Stable unremarkable MRI of the brain Approved by: Sushant Haney M.D. on 08/19/2025 at 10:13
== END ==
LOC: MRI 08:45
PROVIDERS: PCP Registered Nurse Diabetes Educator; Referring Provider Registered Nurse Diabetes Educator; Visit Provider Registered Nurse Diabetes Educator
DX: H05.26 Pulsating exophthalmos (principal); H53.9 Unspecified visual disturbance; R51.9 Headache, unspecified
CPT/HCPCS: 70551

== ENCOUNTER 2025-09-08 14:30 | Observation (INO) | payer OTHER, SELFPAY ==
[2025-09-08] VITALS (17 sets, daily range): BP systolic 122–206; BP diastolic 66–86; PULSE 60–77; RESP 12–33; TEMP 35.9–36.9; O2SAT 95–99; BMI 26.6; BMI 27.1
--- NOTE | 2025-09-08 14:37 | DI.RAD.S_ITS ---
PROCEDURE: XR CHEST 1V INDICATIONS: Chest Pain TECHNIQUE: One view of the chest was acquired. COMPARISON: [facility], CR, XR CHEST 1V, 09/15/2024, 7:32. FINDINGS: Surgical changes and devices: None. Lungs and pleura: Lungs are clear. No pleural effusions or pneumothorax. Mediastinum: Mediastinal contours appear normal. Heart size is normal. Bones and chest wall: No suspicious bony lesions. Overlying soft tissues appear unremarkable. IMPRESSION: No acute cardiopulmonary abnormality is seen. Dictated by: Олег Dennison M.D. on 09/08/2025 at 16:06 Approved by: Олег Dennison M.D. on 09/08/2025 at 16:09
--- NOTE | 2025-09-08 14:39 | EKG_ITS ---
[address] [address] [address], [place] [address] Test Date: 2025-09-08 Pat Name: Mukesh Vazquez Department: Room: Gender: Female Real Estate Legal Secretary: LISA : 1960 Requested By: Order Number: [id number] Reading MD: Geronimo Earl MD Measurements Intervals [place] Rate: 64 P: CT: 150 QRS: 39 QRSD: 68 T: 49 QT: 394 QTc: 406 Interpretive Statements Normal sinus rhythm Electronically Signed On 09-08-2025 16:03:22 PDT by Geronimo Earl MD
--- NOTE | 2025-09-08 14:54 | PC.NURSE ---
CENTER CHEST PAIN, DOES NOT RADIATE ANYWHERE
[2025-09-08 14:55] LABS: Add Manual Diff / Slide Review NO; Hematocrit 42.2 % (36-46); Hemoglobin 14.2 g/dL (12.0-16.0); Lymphocytes Absolute Auto 2000 /uL (1100-4500); Mean Corpuscular HGB Conc 33.7 % (30-36); Mean Corpuscular Hemoglobin 30.8 PG (26-34); Mean Corpuscular Volume 91.3 fL (80-100); Platelet Count 170 X10^3/uL (150-400)
--- NOTE | 2025-09-08 14:59 | ED_ITS ---
HPI - Chest Pain General Chief Complaint: Chest Pain Stated Complaint: Chest pain Time Seen by Provider: 09/08/25 14:43 Source: patient Mode of arrival: Ambulatory Limitations: no limitations History of Present Illness HPI narrative: Patient here with . Complaints of chest tightness and elevated blood pressure. Patient has history hypertension hyperlipidemia. Does not smoke but father has history of heart attack at her age. Patient denies exertional chest pain. States she has chest tightness. She was seen by her neurology yesterday for her annual migraine workup and in the waiting room her blood pressure was normal at 130 systolic but however when she induced walking, blood pressure 180. Patient had chest tightness today. No prior history of cardiac workup stress test or echocardiogram. Patient does not smoke. Chest tightness does not radiate. Related Data Home Medications ?Medication ?Instructions ?Recorded ?Confirmed rizatriptan 10 mg disintegrating 10 mg PO DAILY 09/08/25 tablet Previous Rx's ?Medication ?Instructions ?Recorded rosuvastatin 20 mg tablet 20 mg PO DAILY #90 tabs 02/07 verapamil 240 mg 24 hr 240 mg PO QDAY #90 caps 02/07 capsule,extended release hydroxyzine HCl 25 mg tablet 25 mg PO TID PRN itching #90 tabs 02/17/25 Allergies Allergy/AdvReac Type Severity Reaction Status Date / Time venom-honey bee (BEE VENOM Allergy Severe FEVER, Verified 09/08/25 14:39 (HONEY BEE)) LESIONS, SWELLING cedarwood Allergy Intermediate Congested Verified 09/08/25 14:39 eucalyptus (From Cepastat Allergy Mild Unknown Verified 09/08/25 14:39 (eucalyptus)) menthol (From Cepastat Allergy Mild Unknown Verified 09/08/25 14:39 (eucalyptus)) phenol (From Cepastat Allergy Mild Unknown Verified 09/08/25 14:39 (eucalyptus)) Review of Systems Review of Systems Narrative: GENERAL: Negative chills, fatigue, malaise, fever, sweats. HEENT: Negative sinus pain, ear pain, sore throat RESPIRATORY: Negative dyspnea, cough CARDIOVASCULAR: Positive chest pain, negative palpitations GASTROINTESTINAL: Negative vomiting, nausea, abdominal pain : Negative dysuria, frequency, hematuria MUSCULOSKELETAL: Negative muscle or bony pain SKIN: Negative rash, skin lesions NEUROLOGIC: Negative weakness, numbness ROS Unobtainable: All systems reviewed & are unremarkable except as noted in HPI and below Patient History Medical History Fatty liver disease, nonalcoholic Dyslipidemia Tubulovillous adenoma Impaired fasting blood sugar Social History household members: spouse Smoking Status: Former smoker alcohol intake: current Smoking Status: Unknown if ever smoked alcohol intake frequency: 0-2 drinks per day Exam Narrative Exam Narrative: GENERAL: in no distress, not toxic not dyspneic HEAD: Normocephalic. EYES: Pupils equal round ENT: Mucous membranes moist. NECK: Trachea midline. CARDIOVASCULAR: Regular rate and rhythm RESPIRATORY: Clear to auscultation. Breath sounds equal bilaterally. No wheezes, rales, or rhonchi. GASTROINTESTINAL: Abdomen soft, non-tender BACK: No flank tenderness. EXTREMITIES: No gross deformities. NEURO: AOx4. Clear speech SKIN: Warm and dry PSYCH: Not anxious, is cooperative Initial Vital Signs Initial Vital Signs: Vital Signs Pulse Oximetry 98 09/08/25 14:35 Scores HEART Score Heart Score history: Moderately Suspicious Heart Score EKG: Normal Heart Score Age: 45-64 years old Heart Score risk factors: > 3 risk factors or hx of atherosclerotic disease Heart Score troponin: < or = to normal limit Heart Score Total: 4 Course Orders Ordered: ED Orders 09/08/25 14:37 XR chest 1V Stat EKG-12 Lead Stat 09/08/25 14:48 Complete Blood Count AUTO DIFF Stat Comprehensive Metabolic Panel Stat Lipase Stat Magnesium Stat NT-proBNP (BNP-Adult 18+) Stat PTT Partial Thromboplastin Mendez Stat Prothrombin Time INR Stat Troponin & CK Cardiac Panel Stat Acetaminophen (Acetaminophen 325 Mg Tablet) 650 mg PO Q6H PRN PRN Reason: Fever/Mild Pain (1-3) Atorvastatin Calcium (Atorvastatin 20 Mg Tablet) 40 mg PO DAILY [facility] Hydroxyzine HCl (Hydroxyzine Hcl 25 Mg Tablet) 25 mg PO TID PRN PRN Reason: Itching Naloxone HCl (Naloxone 0.4 Mg/Ml Vial) 0.2 mg IV Q2MIN PRN PRN Reason: Opiate Reversal Nf (Rizatriptan 10 Mg Tablet, Disintegrating) 10 mg PO DAILY [facility] Non-Formulary Medication (Verapamil) 240 mg PO QDAY OLAYINKA Discontinued Medications Aspirin (Aspirin 81 Mg Chew Tab) 324 mg PO NOW ONE Stop: 09/08/25 14:38 Last Admin: 09/08/25 15:30 Dose: Not Given Documented By: SBF Lisinopril (Lisinopril 5 Mg Tablet) 5 mg PO NOW ONE Stop: 09/08/25 17:59 Nitroglycerin (Nitroglycerin Oint 1 Inch/Gm Oint...G.) 1 inch TOP NOW ONE Stop: 09/08/25 15:11 Last Admin: 09/08/25 15:23 Dose: 1 inch Documented By: LIZETTF Vital Signs Vital signs: Vital Signs - 8 hr 09/08/25 14:35 09/08/25 14:36 09/08/25 14:36 Temperature Pulse Rate 67 Respiratory Rate Blood Pressure 206/86 H Pulse Oximetry 98 99 Oxygen Delivery Method 09/08/25 14:40 09/08/25 15:00 09/08/25 15:00 Temperature 98.4 F Pulse Rate 67 66 Respiratory Rate 14 20 Blood Pressure 206/86 H 176/85 H Pulse Oximetry 99 96 Oxygen Delivery Method Room Air 09/08/25 15:15 09/08/25 15:15 09/08/25 15:23 Temperature Pulse Rate 61 65 Respiratory Rate 12 Blood Pressure 161/79 H 161/79 H Pulse Oximetry 95 Oxygen Delivery Method 09/08/25 15:30 09/08/25 15:30 09/08/25 15:45 Temperature Pulse Rate 66 68 Respiratory Rate 22 31 H Blood Pressure 157/77 H Pulse Oximetry 98 98 Oxygen Delivery Method 09/08/25 15:45 09/08/25 16:00 09/08/25 16:00 Temperature Pulse Rate 77 Respiratory Rate 15 Blood Pressure 157/75 H 165/77 H Pulse Oximetry 96 Oxygen Delivery Method 09/08/25 16:15 09/08/25 16:15 Temperature Pulse Rate 61 Respiratory Rate 27 H Blood Pressure 157/79 H Pulse Oximetry 98 Oxygen Delivery Method MDM - Chest Pain Lab Data 09/08/25 14:48 09/08/25 14:48 Labs: Lab Results 09/08/25 Range/Units 14:48 WBC 5.6 (4.5-11.0) X10^3/uL RBC 4.62 (4.0-5.2) X10^6/uL Hgb 14.2 (12.0-16.0) g/dL Hct 42.2 (36-46) % MCV 91.3 (80-100) fL MCH 30.8 (26-34) PG MCHC 33.7 (30-36) % RDW 14.0 (11.6-14.8) % Plt Count 170 (150-400) X10^3/uL Neut % (Auto) 51.7 (50-75) % Lymph % (Auto) 36.4 (25-40) % [place] % (Auto) 7.9 (3-14) % Eos % (Auto) 3.1 (2-4) % Baso % (Auto) 0.9 (0-2) % Neut # (Auto) 2900 (5155-8096) /uL Lymph # (Auto) 2000 (9878-2533) /uL [place] # (Auto) 400 (0-900) /uL Eos # (Auto) 200 (0-450) /uL Baso # (Auto) 0 (0-100) /uL PT 10.4 (9.4-12.5) SECONDS INR 0.9 (0.9-1.3) APTT 30 (25.1-36.5) SECONDS Sodium 139 (137-145) mmol/L Potassium 3.8 (3.4-5.1) mmol/L Chloride 103 (98-107) mmol/L Carbon Dioxide 27 (22-32) mmol/L BUN 11 (7-17) mg/dL Creatinine 0.88 (0.52-1.04) mg/dL Estimated GFR > 60 (>60) mL/min BUN/Creatinine Ratio 12.5 (6-22) Glucose 94 (70-99) mg/dL Calcium 9.4 (8.4-10.2) mg/dL Magnesium 2.2 (1.6-2.3) mg/dL Total Bilirubin 1.6 H (0.2-1.3) mg/dL AST 44 H (14-36) IU/L ALT 47 H (<35) IU/L Alkaline Phosphatase 63 (38-126) U/L Total Creatine Kinase 89 (30-135) U/L Troponin I < 0.012 (0.01-0.034) ng/mL NT-Pro-B Natriuret Pep 94 (<125) pg/mL Total Protein 8.0 (6.3-8.2) g/dL Albumin 4.8 (3.5-5.0) g/dL Globulin 3.2 (1.7-4.1) g/dL Albumin/Globulin Ratio 1.5 (1.0-2.8) Lipase 93 (23-300) U/L Imaging Data Chest x-ray: Radiologist's Impression: [place] [id number] [place] [id number] XRay Report Signed Patient: Mukesh Vazquez MR#: [id number] : 1960 Acct:[id number] Age/Sex: 65 / F Date of Service: 09/08/25 Loc: ED Accession Number: [id number] Procedure: XR chest 1V Ordering Provider: Yuniel Marrero MD PROCEDURE: XR CHEST 1V INDICATIONS: Chest Pain TECHNIQUE: One view of the chest was acquired. COMPARISON: [facility], , XR CHEST 1V, 09/15/2024, 7:32. FINDINGS: Surgical changes and devices: None. Lungs and pleura: Lungs are clear. No pleural effusions or pneumothorax. Mediastinum: Mediastinal contours appear normal. Heart size is normal. Bones and chest wall: No suspicious bony lesions. Overlying soft tissues appear unremarkable. IMPRESSION: No acute cardiopulmonary abnormality is seen. Dictated by: Олег Dennison M.D. on 09/08/2025 at 16:06 Approved by: Олег Dennison M.D. on 09/08/2025 at 16:09 [facility] Narrative Medical decision making narrative: Patient here with . Complaints of chest tightness and elevated blood pressure. Patient has history hypertension hyperlipidemia. Does not smoke but father has history of heart attack at her age. Patient denies exertional chest pain. States she has chest tightness. She was seen by her neurology yesterday for her annual migraine workup and in the waiting room her blood pressure was normal at 130 systolic but however when she induced walking, blood pressure 180. Patient had chest tightness today. No prior history of cardiac workup stress test or echocardiogram. Patient does not smoke. Chest tightness does not radiate. MDM After history and exam, CBC CMP troponin EKG chest x-ray nitro paste aspirin aspirin Differential considered: Includes but not limited to STEMI non-STEMI unstable angina hypertensive urgency Medical records reviewed: No recent visit for this complaint Lab Test results independently reviewed as above. Pertinent findings: WBC 5.6 hemoglobin 14.2 INR 0.9 troponin less than 0.012 Independently reviewed EKG sinus rhythm rate 64 normal EKG Imaging studies independently reviewed: Chest x-ray no acute finding Consultations: 4:[address] Celis, hospitalist, will admit patient Re-evaluations: 4:15 p.m.. Updated patient and results. She is chest pain-free after nitro paste. Aspirin has been given. Blood pressure has improved systolic 165. Reviewed results with them and they do agree and understand need for admission for stress test. We did stress test lab and they do have capabilities tomorrow Discussion: Appropriate for admission for balance work of chest pain including stress test Diagnosis: Chest pain Discharge Plan Departure Patient Disposition: Admitted as Observation Clinical Impression: Chest pain Qualifiers: Chest pain type: unspecified Qualified Code(s): R07.9 - Chest pain, unspecified Admit Date/Time: 09/08/25 16:18 Admit Provider: Heri Celis
[2025-09-08 15:03] LABS: INR 0.9 (0.9-1.3); Prothrombin Time 10.4 SECONDS (9.4-12.5)
[2025-09-08 15:05] LABS: PTT Partial Thromboplastin Tim 30 SECONDS (25.1-36.5)
[2025-09-08 15:16] LABS: Alanine Aminotransferase 47 IU/L (<35); Albumin 4.8 g/dL (3.5-5.0); Albumin Globulin Ratio 1.5 (1.0-2.8); Alkaline Phosphatase 63 U/L (38-126); Blood Urea Nitrogen 11 mg/dL (7-17); Calcium 9.4 mg/dL (8.4-10.2); Carbon Dioxide 27 mmol/L (22-32); Chloride 103 mmol/L (98-107); Creatine Kinase 89 U/L (30-135); Estimated Glomerular Filt Rate > 60 mL/min (>60); Globulin 3.2 g/dL (1.7-4.1); Glucose 94 mg/dL (70-99); HEMOLYSIS < 15 (0-50); Lipase 93 U/L (23-300); Magnesium 2.2 mg/dL (1.6-2.3); Potassium 3.8 mmol/L (3.4-5.1); Sodium 139 mmol/L (137-145); Total Protein 8.0 g/dL (6.3-8.2)
[2025-09-08] MEDS: NITROGLYCERIN OINT 1 INCH/GM OINT...G. TOP (15:23)
[2025-09-08 15:28] LABS: NT-proBNP (BNP-Adult 18+) 94 pg/mL (<125); Troponin I < 0.012 ng/mL (0.01-0.034)
--- NOTE | 2025-09-08 17:29 | PM.HP.1 ---
History of Present Illness History of Present Illness Date Patient Seen: 09/08/25 Chief complaint: Chest pain Narrative: HPI: She was a 65-year-old female with a history of hypertension and migraines he was had progressive symptoms over the last several weeks with high blood pressure, pounding in her eyes and flashing in her eyes walking up stairs. She was also had increased anxiety and dyspnea. At her neurology appointment recently, she was noted to have high blood pressure was given a prescription for lisinopril 2.5 daily. She failed it but has yet to start it. She takes verapamil 240, primarily for migraine prevention. She noted chest pressure which brought her to the ER today. Her pressure was high. She was have a family history of high blood pressure, as well as stroke and CAD. She drinks 2 alcoholic beverages at night, wine. She was a nonsmoker. S: She was slightly anxious, has no chest pain or dyspnea. No nausea. She does not have a clear history of exertional chest pain. O: NAD, alert and oriented, fluent speech, calm. Normocephalic skull, EOMI, anicteric sclera, symmetric pupils. Oropharynx unremarkable, no droop. Neck supple, midline trachea, no adenopathy. Lungs clear, normal rate and effort. Heart regular, no murmur gallop or rub. Abdomen is soft, non distended and non tender. Extremities are free of edema. Skin is free of rash or lesions. Joints are not swollen or deformed. Judgment appears to be normal. ECG: Normal sinus rhythm IMAGING: CXR: No acute cardiopulmonary abnormality is seen. A/P: 1. Atypical chest pain, active. 2. Uncontrolled hypertension likely causing chest pain, active. PLAN: -serial troponins and if negative stress test. -NPO after midnight. -start lisinopril 5.0 tonight, continue verapamil 240 in the morning. Anticipate 1 night in the hospital, supports observation status. Full code. She was and lives in [place] with her . Family history is positive for stroke and OR. It is also positive for hypertension. [facility] Medical History Fatty liver disease, nonalcoholic Dyslipidemia Tubulovillous adenoma Impaired fasting blood sugar Social History household members: spouse Smoking Status: Former smoker alcohol intake: current Meds Home Medications and Allergies Home Medications ?Medication ?Instructions ?Recorded ?Confirmed ?Type rizatriptan 10 mg disintegrating 10 mg PO DAILY 08/05/23 09/08/25 History tablet rosuvastatin 20 mg tablet 20 mg PO DAILY #90 tabs 10/19/24 09/08/25 Rx verapamil 240 mg 24 hr 240 mg PO QDAY #90 caps 10/19/24 09/08/25 Rx capsule,extended release hydroxyzine HCl 25 mg tablet 25 mg PO TID PRN itching #90 tabs 02/17/25 09/08/25 Rx Allergies Allergy/AdvReac Type Severity Reaction Status Date / Time venom-honey bee (BEE VENOM Allergy Severe FEVER, Verified 09/08/25 14:39 (HONEY BEE)) LESIONS, SWELLING cedarwood Allergy Intermediate Congested Verified 09/08/25 14:39 eucalyptus (From Cepastat Allergy Mild Unknown Verified 09/08/25 14:39 (eucalyptus)) menthol (From Cepastat Allergy Mild Unknown Verified 09/08/25 14:39 (eucalyptus)) phenol (From Cepastat Allergy Mild Unknown Verified 09/08/25 14:39 (eucalyptus)) Review of Systems Review of Systems Narrative: All else reviewed and otherwise unremarkable except as noted in the history and physical. Exam Vital Signs (past 8 hours): - 09/08/25 14:35 09/08/25 14:36 09/08/25 14:36 Temperature Pulse Rate 67 Respiratory Rate Blood Pressure 206/86 H Pulse Oximetry 98 99 Oxygen Delivery Method 09/08/25 14:40 09/08/25 15:00 09/08/25 15:00 Temperature 98.4 F Pulse Rate 67 66 Respiratory Rate 14 20 Blood Pressure 206/86 H 176/85 H Pulse Oximetry 99 96 Oxygen Delivery Method Room Air 09/08/25 15:15 09/08/25 15:15 09/08/25 15:23 Temperature Pulse Rate 61 65 Respiratory Rate 12 Blood Pressure 161/79 H 161/79 H Pulse Oximetry 95 Oxygen Delivery Method 09/08/25 15:30 09/08/25 15:30 09/08/25 15:45 Temperature Pulse Rate 66 68 Respiratory Rate 22 31 H Blood Pressure 157/77 H Pulse Oximetry 98 98 Oxygen Delivery Method 09/08/25 15:45 09/08/25 16:00 09/08/25 16:00 Temperature Pulse Rate 77 Respiratory Rate 15 Blood Pressure 157/75 H 165/77 H Pulse Oximetry 96 Oxygen Delivery Method 09/08/25 16:15 09/08/25 16:15 09/08/25 16:30 Temperature Pulse Rate 61 66 Respiratory Rate 27 H 31 H Blood Pressure 157/79 H Pulse Oximetry 98 95 Oxygen Delivery Method 09/08/25 16:30 09/08/25 16:45 09/08/25 16:45 Temperature Pulse Rate 60 Respiratory Rate 33 H Blood Pressure 147/79 H 152/81 H Pulse Oximetry 98 Oxygen Delivery Method 09/08/25 17:00 09/08/25 17:00 09/08/25 17:15 Temperature Pulse Rate 62 66 Respiratory Rate 14 28 H Blood Pressure 135/74 Pulse Oximetry 95 96 Oxygen Delivery Method 09/08/25 17:15 Temperature Pulse Rate Respiratory Rate Blood Pressure 138/79 Pulse Oximetry Oxygen Delivery Method Oxygen Delivery Method Room Air Objective Labs 09/08/25 14:48 09/08/25 14:48 Labs: Laboratory Results - last 24 hr 09/08/25 14:48 WBC 5.6 RBC 4.62 Hgb 14.2 Hct 42.2 MCV 91.3 MCH 30.8 MCHC 33.7 RDW 14.0 Plt Count 170 Neut % (Auto) 51.7 Lymph % (Auto) 36.4 [place] % (Auto) 7.9 Eos % (Auto) 3.1 Baso % (Auto) 0.9 Neut # (Auto) 2900 Lymph # (Auto) 2000 [place] # (Auto) 400 Eos # (Auto) 200 Baso # (Auto) 0 PT 10.4 INR 0.9 APTT 30 Sodium 139 Potassium 3.8 Chloride 103 Carbon Dioxide 27 BUN 11 Creatinine 0.88 Estimated GFR > 60 BUN/Creatinine Ratio 12.5 Glucose 94 Calcium 9.4 Magnesium 2.2 Total Bilirubin 1.6 H AST 44 H ALT 47 H Alkaline Phosphatase 63 Total Creatine Kinase 89 Troponin I < 0.012 NT-Pro-B Natriuret Pep 94 Total Protein 8.0 Albumin 4.8 Globulin 3.2 Albumin/Globulin Ratio 1.5 Lipase 93 Assessment & Plan Time-Based Coding :: 35 min spent with patient and on the chart (including review of chart, obtaining history, exam, reviewing outside data, placing orders, documenting exam and treatment plan, and counseling patient) on 09/08. Quality MIPS - Admit I confirm the patient?s Advance Care Plan is present, Code status is documented, Surrogate decision maker is in patient?s record [If Yes, STOP here]: Yes MIPS - Meds 'Current medications' to include all prescriptions, [id number] products, herbals, cannabis/cannabidiol products, and vitamin/mineral/dietary (nutritional) supplements. I have utilized all available resources to obtain, update, or review the patient?s current medications. [If Yes, STOP here]: Yes
--- NOTE | 2025-09-08 17:44 | PC.NURSE ---
Pt arrived to ACU at 1730. Ambulated to bathroom to void, then to bed. AxO. Denies any chest pain, SOB, or nausea. Oriented pt to room, and discussed no caffeine intake starting now d/t stress test tomorrow. Call light within reach. Care ongoing.
[2025-09-08 21:05] LABS: Troponin I < 0.012 ng/mL (0.01-0.034)
--- NOTE | 2025-09-09 01:17 | PC.NURSE ---
Assumed care of patient at 00:30
[2025-09-09 03:00] VITALS: BP 107/59; PULSE 65; RESP 15; TEMP 36.3; O2SAT 94
[2025-09-09] MEDS: ACETAMINOPHEN 325 MG TABLET 650 MG PO (06:10)
[2025-09-09 06:21] LABS: Troponin I < 0.012 ng/mL (0.01-0.034)
--- NOTE | 2025-09-09 07:19 | DI.NM.S_ITS ---
PROCEDURE: NM LUBA PERF SPECT REST & STR Rest and exercise myocardial perfusion SPECT with gated imaging and ejection fraction RADIOPHARMACEUTICAL: 8.0 mCi Tc-99m sestamibi IV at rest and 27.1 mCi Tc-99m sestamibi IV at peak exercise. A [id number]-[id number] was performed. INDICATIONS: chest pain PQRS ATTESTATIONS: Measure 322 - Is this imaging test primarily performed on a low-risk surgery patient for preoperative evaluation within 30 days preceding their low-risk non-cardiac surgery? Low-risk surgery is defined as cardiac or myocardial infarction less than 1%, including (but not limited to) endoscopic procedures, superficial procedures, cataract surgery, and excisional breast surgery: Answer: No Measure 323 - Is this imaging test performed primarily for the monitoring of an asymptomatic patient who had percutaneous coronary intervention on the visit date or within 2 years of the visit date? Answer: No Measure 324 - Is this imaging test performed primarily for the initial detection and risk assessment on an asymptomatic, low coronary heart disease patient? Low CHD risk definition = clinicians should consider the maximum number of available patient factors used to estimate risk based on [place] (ATP III criteria), typically age, gender, diabetes, smoking status, and use of blood pressure medication, and integrate age appropriate estimates for missing elements, such as LDL or standard blood pressure. Answer: No TECHNIQUE: Radiopharmaceutical was injected at peak stress test, and also at rest. SPECT images were obtained. SPECT myocardial perfusion images were displayed in short axis, horizontal long axis, and vertical long axis views. Gated images were reviewed using [employer] software. COMPARISON: None. CARDIAC STRESS: A standard Alexi treadmill exercise tolerance test was performed by the patient under the supervision of an attending staff. The patient exercised for 6 minutes and 0 seconds; functional aerobic impairment (JORY) is +6%. Hemodynamic data: There is normal blood pressure and heart rate response to exercise stress. Patient achieved 92% of maximum predicted heart rate at peak exercise. Symptoms: Patient denied chest pain during exercise. EKG: No diagnostic EKG changes of ischemia; no ectopy. FINDINGS: Raw data: There is good myocardial labeling by radiotracer. No significant motion artifacts. Kfsh-we-xnkmz ratio is not applicable (normal is less than 0.38 for sestamibi tracer, and less than 0.50 for thallium tracer). Left ventricle function: Gated images demonstrate normal left ventricle wall thickening. No segmental wall motion abnormality. No transient ischemic dilation; TID is 0.89 (normal less than 1.3). The left ventricle resting end-diastolic volume is not available. Left ventricle stress ejection fraction is 82%; normal values are above 45%. Myocardial perfusion: There is normal distribution of activity in the left and right ventricular myocardium. No fixed or reversible perfusion defects. IMPRESSION: Negative exercise myocardial perfusion scan for ischemia and infarction with slightly reduced exercise tolerance. Dictated by: Lencho Rosales M.D. on 09/09/2025 at 12:46 Approved by: Lencho Rosales M.D. on 09/09/2025 at 12:48
[2025-09-09 08:00] VITALS: BP 112/62; PULSE 58; RESP 20; TEMP 36.1; O2SAT 100
--- NOTE | 2025-09-09 08:24 | CM.DANOTE ---
Initial DCP Assessment Note. Review EMR and PT Interview. Met with patient at bedside to discuss discharge needs.PT is alert x 4 sitting up in chabed. No acute distress. Independent. Lives with . Payor:?Paxton BERNALO? PCP: Summary & Plan:?65 y/o female. OBS. Arrived to ED c/o CP. Admitted. Dx. CP. Negative Troponins. Plan: Stress Test today, if NEG discharge home. Discharge Planning/Care Management CM Discharge Assessment Start: 09/08/25 16:47 Freq: Status: Active Protocol: Document 09/09/25 08:22 (Rec: 09/09/25 08:24 [id number]) Discharge Planning Assessment Assigned Discharge Carol Perez RN CM Yarn Wrapper Provider Dr. Muñoz [facility] Advance Directives? Yes Advance Directives No on File History Provided By Patient,Medical Record Has Patient been No admitted in last 30 days? Prior Living House Arrangements Household Members spouse Type of Drives own vehicle transporation used prior to admit Independent with ADL Yes 's Is patient alert and Yes oriented? Caregiver for No Another Barriers to No Discharge Discharge Plan Home Transportation or DRT. Arrangement Referrals Initiated None needed Review Status In Process Please Provide Date 09/09/25 Initial DC Assessment Was Performed Next Review Type Continued Stay Review
[2025-09-09 12:00] VITALS: BP 137/71; PULSE 58; RESP 18; TEMP 35.9; O2SAT 97
[2025-09-09] MEDS: VERAPAMIL 80 MG TABLET PO (12:39)
--- NOTE | 2025-09-09 14:59 | PM.DS.1 ---
History of Present Illness History of Present Illness Chief complaint: Chest pain Narrative: HPI: She was a 65-year-old female with a history of hypertension and migraines he was had progressive symptoms over the last several weeks with high blood pressure, pounding in her eyes and flashing in her eyes walking up stairs. She was also had increased anxiety and dyspnea. At her neurology appointment recently, she was noted to have high blood pressure was given a prescription for lisinopril 2.5 daily. She failed it but has yet to start it. She takes verapamil 240, primarily for migraine prevention. She noted chest pressure which brought her to the ER today. Her pressure was high. She was have a family history of high blood pressure, as well as stroke and CAD. She drinks 2 alcoholic beverages at night, wine. She was a nonsmoker. S: She was slightly anxious, has no chest pain or dyspnea. No nausea. She does not have a clear history of exertional chest pain. O: NAD, alert and oriented, fluent speech, calm. Normocephalic skull, EOMI, anicteric sclera, symmetric pupils. Oropharynx unremarkable, no droop. Neck supple, midline trachea, no adenopathy. Lungs clear, normal rate and effort. Heart regular, no murmur gallop or rub. Abdomen is soft, non distended and non tender. Extremities are free of edema. Skin is free of rash or lesions. Joints are not swollen or deformed. Judgment appears to be normal. ECG: Normal sinus rhythm IMAGING: CXR: No acute cardiopulmonary abnormality is seen. A/P: 1. Atypical chest pain, active. 2. Uncontrolled hypertension likely causing chest pain, active. PLAN: -serial troponins and if negative stress test. -NPO after midnight. -start lisinopril 5.0 tonight, continue verapamil 240 in the morning. Anticipate 1 night in the hospital, supports observation status. Full code. She was and lives in [place] with her . Family history is positive for stroke and NM. It is also positive for hypertension. Discharge Providers Provider Date of admission: 09/08/25 16:18 Discharge Date: 09/09/25 Primary care physician: ADELA Leach Consults: None. Discharge provider: Heri Celis MD Summary Hospital Course Discharge Diagnosis: 1. Atypical chest pain which may relate to episodic hypertension. 2. Episodic hypertension. Hospital Course: She was admitted and given a dose of lisinopril with relative improvement of blood pressure. She underwent a stress test with Lexiscan which was low risk. She was felt to be stable for discharge and we will be continuing her new medication lisinopril 2.5 in addition to her chronic verapamil. She does have follow up with Uday Santamaria set up within the next 2 weeks. In the meantime she will track her blood pressures and keep a log. Status at Discharge Cognitive/behavioral status at discharge: oriented Functional status at discharge: independent ambulation Overall status at discharge: patient is back to baseline Time Spent with Patient Time spent: Greater than 30 minutes Exam Vital Signs (past 8 hours): - 09/09/25 07:35 09/09/25 08:00 09/09/25 12:00 Temperature 96.9 F L 96.7 F L Pulse Rate 58 L 58 L Respiratory Rate 20 18 Blood Pressure 112/62 137/71 Pulse Oximetry 100 97 Oxygen Delivery Method Room Air Oxygen Flow Rate 0 0 Oxygen Delivery Method Room Air Oxygen Flow Rate 0 Narrative Exam Narrative: NAD, alert and oriented. Fluent speech. Lungs are clear, normal rate and effort. Heart is regular, no murmur gallop or rub. Abdomen is soft, non distended. Extremities are free of edema. Objective ECG Impression: Normal sinus rhythm Imaging Multiple studies:: Radiologist's impression: CXR: No acute cardiopulmonary abnormality is seen. Lexiscan stress test: Raw data: There is good myocardial labeling by radiotracer. No significant motion artifacts. Nqsw-[id number] ratio is not applicable (normal is less than 0.38 for sestamibi tracer, and less than 0.50 for thallium tracer). Left ventricle function: Gated images demonstrate normal left ventricle wall thickening. No segmental wall motion abnormality. No transient ischemic dilation; TID is 0.89 (normal less than 1.3). The left ventricle resting end-diastolic volume is not available. Left ventricle stress ejection fraction is 82%; normal values are above 45%. Myocardial perfusion: There is normal distribution of activity in the left and right ventricular myocardium. No fixed or reversible perfusion defects. IMPRESSION: Negative exercise myocardial perfusion scan for ischemia and infarction with slightly reduced exercise tolerance. Labs 09/08/25 14:48 09/08/25 14:48 Labs: Laboratory Results - last 24 hr 09/08/25 09/08/25 09/09/25 14:48 20:37 05:35 PT 10.4 INR 0.9 APTT 30 Sodium 139 Potassium 3.8 Chloride 103 Carbon Dioxide 27 BUN 11 Creatinine 0.88 Estimated GFR > 60 BUN/Creatinine Ratio 12.5 Glucose 94 Calcium 9.4 Magnesium 2.2 Total Bilirubin 1.6 H AST 44 H ALT 47 H Alkaline Phosphatase 63 Total Creatine Kinase 89 Troponin I < 0.012 < 0.012 < 0.012 NT-Pro-B Natriuret Pep 94 Total Protein 8.0 Albumin 4.8 Globulin 3.2 Albumin/Globulin Ratio 1.5 Lipase 93 PFSH Medical History Fatty liver disease, nonalcoholic Dyslipidemia Tubulovillous adenoma Impaired fasting blood sugar Social History household members: spouse Smoking Status: Former smoker alcohol intake: current Discharge Assessment & Plan Assessment and Plan Assessment: 1. Atypical chest pain which may relate to episodic hypertension. 2. Episodic hypertension. Plan of Treatment: She will be discharged with the addition of her new lisinopril 2.5 daily. She will have follow up within 10 days. If she was any her symptoms would consider go to rule out pulmonary hypertension or elevated right-sided heart pressures. Discharge Plan Discharge Plan Patient Disposition: Home Provider Discharge Comment: Stable for discharge home. We will start lisinopril 2.5 daily, close follow up. Discharge orders & Medications Prescriptions: New lisinopril 2.5 mg tablet 2.5 mg PO DAILY Qty: 30 0RF Continued rizatriptan 10 mg tablet,disintegrating 10 mg PO DAILY rosuvastatin 20 mg tablet 20 mg PO DAILY Qty: 90 3RF verapamil 240 mg capsule,ext rel. pellets 24 hr 240 mg PO QDAY Qty: 90 3RF hydroxyzine HCl 25 mg tablet 25 mg PO TID PRN (Reason: itching) Qty: 90 3RF Follow up/Referrals: Uday Muñoz ARNP [Primary Care Provider, Medical] Diet/Activity/Treatments Diet comment: Low salt, decrease alcohol. Activity: Walk 20 minutes a day. Visit Report/Discharge Packet Instructions: DASH Diet For a Healthy Blood Pressure, DI for Malignant Hypertension, How to Prevent Falls, DI for Chest Pain, How to Monitor Your Blood Pressure at Home, DI for Dizziness-Nonvertigo Stand Alone Forms: Patient Portal/API Discharge Data Primary Care Provider: Uday Muñoz Attending Provider: Heri Celis Admit Date/Time: 09/08/25 16:18 Quality VTE Deep Vein Thrombosis/Pulmonary Embolism Present on Admission: No
--- NOTE | 2025-09-09 16:56 | PC.NURSE ---
Discharge: MD here and gave discharge instructions. Discharge packet given and reviewed. Rx given, already has. Questions answered. Pt d/c to home via auto w/spouse.
== END 2025-09-09 13:50 | disposition home or self-care (01) ==
LOC: ED 16:17 → AC 16:18
PROVIDERS: Admitting Provider Hospitalist; Emergency Provider Emergency Medicine; PCP Registered Nurse Diabetes Educator; Referring Provider Emergency Medicine; Visit Provider Hospitalist
DX: I10 Essential (primary) hypertension (principal); E78.5 Hyperlipidemia, unspecified; Z87.891 Personal history of nicotine dependence; G43.909 Migraine, unspecified, not intractable, without status migrainosus; Z82.49 Family history of ischemic heart disease and other diseases of the circulatory system; F41.9 Anxiety disorder, unspecified; R07.89 Other chest pain
CPT/HCPCS: 36415; 71045; 78452; 80053; 82550; 83690; 83735; 83880; 84484; 85025; 85610; 85730; 93005; 93010; 93017; 99284; G0378; A9502

== ENCOUNTER → 2025-09-20 11:05 | Outpatient (CLI) | payer OTHER, SELFPAY ==
[2025-09-08 17:30] VITALS: BMI 27.1
[2025-09-20 12:45] LABS: Blood Urea Nitrogen 10 mg/dL (7-17); Calcium 9.4 mg/dL (8.4-10.2); Carbon Dioxide 25 mmol/L (22-32); Chloride 103 mmol/L (98-107); Estimated Glomerular Filt Rate > 60 mL/min (>60); Glucose 90 mg/dL (70-99); HEMOLYSIS < 15 (0-50); Potassium 4.4 mmol/L (3.4-5.1); Sodium 137 mmol/L (137-145)
== END ==
PROVIDERS: PCP Registered Nurse Diabetes Educator; Referring Provider Psychiatry & Neurology Neurology; Visit Provider Psychiatry & Neurology Neurology
DX: I10 Essential (primary) hypertension (principal)
CPT/HCPCS: 36415; 80048

== ENCOUNTER → 2025-10-21 08:10 | Outpatient (CLI) | payer OTHER, SELFPAY ==
[2025-09-08 17:30] VITALS: BMI 27.1
[2025-10-21 09:22] LABS: Cholesterol 165 mg/dL (140-199); HDL Cholesterol 60 mg/dL (40-60); Triglycerides 98 mg/dL (35-150)
[2025-10-21 09:50] LABS: TSH w/ Reflex to FT4 2.11 uIU/mL (0.47-4.68)
== END ==
PROVIDERS: PCP Registered Nurse Diabetes Educator; Referring Provider Registered Nurse Diabetes Educator; Visit Provider Registered Nurse Diabetes Educator
DX: K76.0 Fatty (change of) liver, not elsewhere classified (principal); E78.5 Hyperlipidemia, unspecified; R73.01 Impaired fasting glucose; R91.1 Solitary pulmonary nodule
CPT/HCPCS: 36415; 80061; 84443

== ENCOUNTER → 2025-11-01 08:49 | Outpatient (CLI) | payer OTHER, SELFPAY ==
[2025-09-08 17:30] VITALS: BMI 27.1
--- NOTE | 2025-11-01 09:05 | DI.CT.S_ITS ---
PROCEDURE: CT CHEST WO CON INDICATIONS: reeval TECHNIQUE: Noncontrast 2.0-2.5 mm thick sections acquired from the pulmonary apices to the posterior costophrenic angles. 7 mm thick axial MIP and 5 mm coronal and sagittal reformats were then acquired. For radiation dose reduction, the following was used: automated exposure control, adjustment of mA and/or kV according to patient size. COMPARISON: [facility], CR, XR CHEST 1V, 09/08/2025, 14:37. [facility], CT, CT ANGIO CHEST PE PROTOCOL, 09/15/2024, 10:24. FINDINGS: Image quality: Diagnostic. Lower Neck: No enlarged lymph nodes. Thyroid: No thyroid nodules which require sonographic follow up, per consensus guidelines. Axillae: No enlarged lymph nodes. Chest Wall: Unremarkable. Bones: Unremarkable. Lungs and Pleura: No pneumothorax or pleural effusions. No consolidation. 5 millimeter right middle lobe subpleural nodule is stable compared to September 15, 2024. No new lung nodules. Heart: Heart size is normal. No pericardial effusion. Thoracic Vessels: The aorta and pulmonary arteries demonstrate normal size. Mediastinum and Klely: No enlarged lymph nodes. Prominent pretracheal mediastinal lymph node is stable in size and contour. Esophagus: No wall thickening. No hiatal hernia. Upper Abdomen: Visualized upper abdomen solid organs and bowel loops appear normal. IMPRESSION: Stable examination compared to September 15, 2024. Stable 5 millimeter right middle lobe nodule. No additional imaging required based on criteria outlined below. Fleischner Society criteria for SOLID lung nodule followup. Nodule size (mm)Low-risk patientHigh-risk patient<6 (single or multiple)No routine followup.Optional CT at 12 months. 6-8 (single or multiple)CT at 6-12 months, then optional CT at 18-24 mo.CT at 6-12 months, then CT at 18-24 months. >8 (single)CT at 3 months, PET-CT, or biopsy. Same as for low-risk pts. >8 (multiple)CT at 3-6 months, then optional CT at 18-24 mo.CT at 3-6 months, then CT at 18-24 months. Fleischner Society criteria for SUB-SOLID lung nodule followup. Solitary pure ground-glass nodules<6 mm (ground glass or part solid)No followup needed. 6 mm or larger (ground glass)CT at 6-12 months to confirm persistence, then CT every 2 years until 5 years.6 mm or larger (part solid)CT at 3-6 months to confirm persistence, then annual CT until 5 years if unchanged and solid component remains <6 mm. Multiple sub-solid nodules<6 mmCT at 3-6 months, then CT consider at 2 & 4 years for high risk patients. [address] at 3-6 months. Subsequent management based on most suspicious lesions. Recommendations do not apply to lung cancer screening, patients with immunosuppression, or patients with known primary cancer. Dictated by: Allison Ansari MD, PhD on 11/01/2025 at 9:48 Approved by: Allison Ansari MD, PhD on 11/01/2025 at 9:56
== END ==
LOC: CT 08:49
PROVIDERS: PCP Registered Nurse Diabetes Educator; Referring Provider Registered Nurse Diabetes Educator; Visit Provider Registered Nurse Diabetes Educator
DX: R91.1 Solitary pulmonary nodule (principal)
CPT/HCPCS: 71250